=== PATIENT | male | born 1955 ===

== ENCOUNTER 2017-08-25 08:31 | Inpatient (IN) | payer OTHER ==
[2017-08-25 09:30] LABS: BASO % 0.2 % (0.0-2.0); EOS % 0.3 % (0.0-4.0); HEMOGLOBIN 11.2 g/dL (12.0-18.0); LYMPH # 1.1 K/uL (1.0-4.3); LYMPH % 7.2 % (20.0-40.0); MEAN CELL VOLUME 91.1 fL (80.0-94.0); MEAN CORPUSCULAR HEMOGLOBIN 32.4 pg (27.0-31.0); MEAN CORPUSCULAR HGB CONC 35.5 g/dL (33.0-37.0); MEAN PLATELET VOLUME 8.5 fL (7.2-11.7); MONO # 1.9 K/uL (0.0-0.8); MONO % 12.7 % (0.0-10.0); NEUT # 11.9 K/uL (1.8-7.0); NEUT % 79.6 % (50.0-75.0); PLATELET COUNT 266 K/uL (130-400); RBC 3.46 Mil/uL (4.40-5.90); RED CELL DISTRIBUTION WIDTH 12.9 % (11.5-14.5); WHITE BLOOD COUNT 14.9 K/uL (4.8-10.8)
[2017-08-25 09:42] LABS: INR 1.1; PROTHROMBIN TIME 12.2 SECONDS (9.7-12.2)
[2017-08-25 09:49] LABS: ALBUMIN 3.9 g/dL (3.5-5.0); ALT/SGPT 73 U/L (21-72); AST/SGOT 45 U/L (17-59); BLOOD UREA NITROGEN 33 mg/dL (9-20); CALCIUM 9.3 mg/dl (8.6-10.4); GFR AFRICAN-AMERICAN > 60; GFR NON-AFRICAN AMERICAN > 60
[2017-08-25 09:54] LABS: SQUAMOUS EPITHIAL < 1 /hpf (0-5); URINE BILIRUBIN NEGATIVE (NEGATIVE); URINE BLOOD 1+ (NEGATIVE); URINE CLARITY Hazy (Clear); URINE COLOR Amber (YELLOW); URINE GLUCOSE (UA) NORMAL (Normal); URINE LEUKOCYTE ESTERASE 1+ Leu/uL (Negative); URINE PROTEIN 2+ mg/dL (NEGATIVE)
[2017-08-25 10:01] LABS: B-TYPE NATRIURETIC PEPTIDE 67.8 pg/mL (0-900); CK-MB 0.47 ng/mL (0.0-3.38)
--- NOTE | 2017-08-25 10:02 | RAD ---
Chest x-ray single frontal view History: Chest pain. Cough. Comparison: None available. Findings: Mild venous congestion. Bilateral hilar prominence. Mild patchy increased markings at the left lung base. Tortuous aorta. Mild cardiomegaly. Degenerative changes in the spine. Impression: Mild venous congestion. Bilateral hilar prominence. Mild patchy increased markings at the left lung base. Tortuous aorta. Mild cardiomegaly.
[2017-08-25 10:23] LABS: EOSINOPHIL 1 % (0-4); LYMPHOCYTE 2 % (20-40); MONOCYTE 8 % (0-10); NEUTROPHIL 89 % (50-75); TOTAL CELLS COUNTED 100
[2017-08-25 10:24] LABS: PLATELET ESTIMATE NORMAL (NORMAL)
--- NOTE | 2017-08-25 11:29 | CT ---
CT chest History: Cough. Leukocytosis. Comparison: None available. Technique: Multiple contiguous axial images were performed through the chest without the use of intravenous contrast. Subsequently, sagittal and coronal reformatted images were obtained. This CT exam was performed using one or more of the following dose reduction techniques: Automated exposure control, adjustment of the mA and/or kV according to patient size, and/or use of iterative reconstruction technique. Findings: Left lun.4 x 1.8 x 2.4 centimeter focal area of consolidation seen along the anterior aspect of the left upper lobe best seen on series 4, image 44 and series 602, image 106. This is at the level of the left sternoclavicular joint space and anterior chest wall. This is of uncertain clinical etiology and may represent the sequelae of acute infectious and or inflammatory changes. Post treatment interval followup would be helpful to ensure resolution and exclude underlying lesion. Linear atelectatic changes within the lingula. 1 millimeter subpleural nodule at the level of the lingula. Left basilar atelectatic changes. Right lung: Atelectatic changes. No significant axillary adenopathy. Heterogeneous thyroid. 1.1 centimeter prevascular lymph node. Calcification within the aorta. Coronary calcifications. 1.9 centimeter precarinal lymph node. Fatty infiltration in a prominent liver. Small hiatal hernia. Few punctate 1-2 millimeter nonobstructive left renal calculi. Vascular calcifications. Degenerative changes in the visualized osseous structures. Impression: 4.4 x 1.8 x 2.4 centimeter focal area of consolidation seen along the anterior aspect of the left upper lobe of the lung best seen on series 4, image 44 and series 602, image 106. This is at the level of the left sternoclavicular joint space and anterior chest wall. This is of uncertain clinical etiology and may represent the sequelae of acute infectious and or inflammatory changes. Post treatment interval followup would be helpful to ensure resolution and exclude underlying lesion. Additional findings as above.
[2017-08-25] MEDS ORDERED: Azithromycin 500 MG in Sodium Chloride 0.9% 250 ML IVPB STA (12:23)
[2017-08-25] MEDS ORDERED: cefTRIAXone IV 1 gm in Dextros 50 ML IVPB ONE (12:34)
[2017-08-25] MEDS ORDERED: cefTRIAXone IV 1 gm in Dextros 50 ML IVPB STA (12:37)
--- NOTE | 2017-08-25 12:38 | C.PDOC ---
History Of Present Illness 61 y/o male presents to the ED complaining of a decreased appetite and generally not feeling well since Sunday. Also reports a dry cough, and chest pain when coughing. The pain is also radiating to his back. Patient has noticed some swelling to the left side of chest wall, which is painful to touch. Otherwise patient denies any SOB, leg pain/swelling, dizziness, visual changes, numbness, paresthesias, or extremity weakness. Time Seen by Provider: 08/25/17 08:44 Chief Complaint (Nursing): Chest Pain History Per: Patient History/Exam Limitations: no limitations Onset/Duration Of Symptoms: Days Current Symptoms Are (Timing): Still Present Past Medical History Reviewed: Historical Data, Nursing Documentation, Vital Signs Vital Signs: Last Vital Signs Temp 98.9 F 08/25/17 14:10 Pulse 117 H 08/25/17 14:10 Resp 20 08/25/17 14:10 BP 127/75 08/25/17 14:10 Pulse Ox 96 08/25/17 14:30 - Medical History PMH: Diabetes, HTN, Hypercholesterolemia Surgical History: No Surg Hx Family History: States: No Known Family Hx - Social History Hx Alcohol Use: Yes Hx Substance Use: No - Immunization History Hx Tetanus Toxoid Vaccination: (unk) Hx Influenza Vaccination: Yes Hx Pneumococcal Vaccination: (unk) Review Of Systems Except As Marked, All Systems Reviewed And Found Negative. Constitutional: Negative for: Fever, Chills Eyes: Negative for: Vision Change Cardiovascular: Positive for: Chest Pain Respiratory: Positive for: Cough. Negative for: Shortness of Breath, Sputum Gastrointestinal: Positive for: Other (Decreased appetite). Negative for: Nausea, Vomiting Neurological: Negative for: Weakness, Numbness, Incoordination, Change in Speech , Confusion, Headache, Dizziness Physical Exam - Physical Exam Appears: Non-toxic, No Acute Distress Skin: Normal Color, Warm, Dry Head: Atraumatic, Normacephalic Eye(s): bilateral: Normal Inspection, PERRL, EOMI Nose: Normal Oral Mucosa: Moist Neck: Normal ROM, Supple Chest: Symmetrical, Tenderness (to swelling at left anterior chest) Cardiovascular: Rhythm Regular, Edema (soft tissue swelling to left side of chest, with no erythema or skin changes) Respiratory: No Accessory Muscle Use, No Rales, No Rhonchi, No Wheezing Gastrointestinal/Abdominal: Soft, No Tenderness, No Distention Extremity: Bilateral: Atraumatic, No Pedal Edema, Normal Color And Temperature, Normal ROM Pulses: Left Dorsalis Pedis: Normal, Right Dorsalis Pedis: Normal Neurological/Psych: Oriented x3, Normal Speech, Normal Cranial Nerves, Normal Motor, Normal Sensation, Other (No focal deficits) ED Course And Treatment - Laboratory Results Result Diagrams: 08/25/17 09:23 08/25/17 09:23 O2 Sat by Pulse Oximetry: 96 (RA) Pulse Ox Interpretation: Normal - Other Rad CXR X-Ray: Read By Radiologist Interpretation: Accession No. : [id number]. Patient Name / ID : GUILLE REINA / [id number]. Exam Date : 08/25/2017 10:36:12 ( Approved ). Study Comment : Sex / Age : M / 61Y. Creator : Kendall Disla MD. Dictator : Kendall Disla MD. [employer] : Heavy Equipment Technician : Kendall Disla MD. Approver2 : Report Date : 08/25/2017 11:28:25. My Comment : . CT chest. History: Cough. Leukocytosis. Comparison: None available. Technique: Multiple contiguous axial images were performed through the chest without the use of intravenous contrast. Subsequently, sagittal and coronal reformatted images were obtained. This CT exam was performed using one or more of the following dose reduction techniques: Automated exposure control, adjustment of the mA and/or kV according to patient size, and/or use of iterative reconstruction technique. Findings: Left lun.4 x 1.8 x 2.4 centimeter focal area of consolidation seen along the anterior aspect of the left upper lobe best seen on series 4, image 44 and series 602, image 106. This is at the level of the left sternoclavicular joint space and anterior chest wall. This is of uncertain clinical etiology and may represent the sequelae of acute infectious and or inflammatory changes. Post treatment interval followup would be helpful to ensure resolution and exclude underlying lesion. Linear atelectatic changes within the lingula. 1 millimeter subpleural nodule at the level of the lingula. Left basilar atelectatic changes. Right lung: Atelectatic changes. No significant axillary adenopathy. Heterogeneous thyroid. 1.1 centimeter prevascular lymph node. Calcification within the aorta. Coronary calcifications. 1.9 centimeter precarinal lymph node. Fatty infiltration in a prominent liver. Small hiatal hernia. Few punctate 1-2 millimeter nonobstructive left renal calculi. Vascular calcifications. Degenerative changes in the visualized osseous structures. Impression: 4.4 x 1.8 x 2.4 centimeter focal area of consolidation seen along the anterior aspect of the left upper lobe of the lung best seen on series 4, image 44 and series 602, image 106. This is at the level of the left sternoclavicular joint space and anterior chest wall. This is of uncertain clinical etiology and may represent the sequelae of acute infectious and or inflammatory changes. Post treatment interval followup would be helpful to ensure resolution and exclude underlying lesion. Additional findings as above. - CT Scan/US CT Chest Other Rad Studies (CT/US): Read By Radiologist, Radiology Report Reviewed CT/US Interpretation: Accession No. : [id number]. Patient Name / ID : GUILLE REINA / [id number]. Exam Date : 08/25/2017 10:36:12 ( Approved ). Study Comment : Sex / Age : M / 61Y. Creator : Kendall Disla MD. Dictator : Kendall Disla MD. [employer] : Heavy Equipment Technician : Kendall Disla MD. Approver2 : Report Date : 08/25/2017 11:28:25. My Comment : . CT chest. History: Cough. Leukocytosis. Comparison: None available. Technique: Multiple contiguous axial images were performed through the chest without the use of intravenous contrast. Subsequently, sagittal and coronal reformatted images were obtained. This CT exam was performed using one or more of the following dose reduction techniques: Automated exposure control, adjustment of the mA and/or kV according to patient size, and/or use of iterative reconstruction technique. Findings: Left lun.4 x 1.8 x 2.4 centimeter focal area of consolidation seen along the anterior aspect of the left upper lobe best seen on series 4, image 44 and series 602, image 106. This is at the level of the left sternoclavicular joint space and anterior chest wall. This is of uncertain clinical etiology and may represent the sequelae of acute infectious and or inflammatory changes. Post treatment interval followup would be helpful to ensure resolution and exclude underlying lesion. Linear atelectatic changes within the lingula. 1 millimeter subpleural nodule at the level of the lingula. Left basilar atelectatic changes. Right lung: Atelectatic changes. No significant axillary adenopathy. Heterogeneous thyroid. 1.1 centimeter prevascular lymph node. Calcification within the aorta. Coronary calcifications. 1.9 centimeter precarinal lymph node. Fatty infiltration in a prominent liver. Small hiatal hernia. Few punctate 1-2 millimeter nonobstructive left renal calculi. Vascular calcifications. Degenerative changes in the visualized osseous structures. Impression: 4.4 x 1.8 x 2.4 centimeter focal area of consolidation seen along the anterior aspect of the left upper lobe of the lung best seen on series 4, image 44 and series 602, image 106. This is at the level of the left sternoclavicular joint space and anterior chest wall. This is of uncertain clinical etiology and may represent the sequelae of acute infectious and or inflammatory changes. Post treatment interval followup would be helpful to ensure resolution and exclude underlying lesion. Additional findings as above. Progress Note: Labs and CXR obtained and reviewed. Labs are significant for leukocytosis, elevated BUN. Ordered CT Chest w/o contrast. CT demonstrates focalized area of consolidation in the left upper lung, with unknown etiology. Patient started on IV rocephin and zithro. Paged patient's primary doctor, Dr. Hua who accepted patient to his service for observation. - Physician Consult Information Time Consulting Physician Contacted: 12:31 Physician Contacted: Bhavik Javid Outcome Of Conversation: Informed of patient's lab and CT results, requests patient be admitted with Dr. Brandon Cervantes for pulmonology consult. 12: 45pm Paged Dr. Cervantes, left voice mail. 1:35pm 2nd page placed to Dr. Cervantes, left 2nd voice mail. 2:30 pm 3rd page placed to Dr. Cervantes , left 3rd voice mail. Disposition - Disposition Disposition: HOSPITALIZED Disposition Time: 13:27 Condition: FAIR - Clinical Impression Clinical Impression: Pneumonia, Consolidation of right upper lobe - PA / BULL BUCKER / Resident Statement MD/DO has reviewed & agrees with the documentation as recorded. - Scribe Statement The provider has reviewed the documentation as recorded by the Scribe (Yara Siu) All medical record entries made by the Scribe were at my direction and personally dictated by me. I have reviewed the chart and agree that the record accurately reflects my personal performance of the history, physical exam, medical decision making, and the department course for this patient. I have also personally directed, reviewed, and agree with the discharge instructions and disposition. Decision To Admit - Pt Status Changed To: Hospital Disposition Of: Observation - . Bed Request Type: Regular Patient Diagnosis: Pneumonia, Consolidation of right upper lobe
[2017-08-25] MEDS: GlipiZIDE 2.5 mg Tab PO SCH (15:24)
[2017-08-25] MEDS ORDERED: Enoxaparin 40 mg Syringe ONE (15:25)
[2017-08-25] MEDS: Enoxaparin 40 mg Syringe SC SCH (15:30)
[2017-08-25] MEDS: Sodium Chloride 0.9% 500 ML IV SCH ×2 (15:30→20:40)
--- NOTE | 2017-08-25 15:38 | US ---
Abdominal ultrasound History: Hematuria. Comparison: None available. Technique: Real-time sonography was performed through the abdomen. Findings: Liver: 16 centimeters in length. Increased echogenicity of the hepatic parenchymal cortex suggestive for fatty infiltration versus hepatic parenchymal disease. Clinical correlation. Gallbladder: No calculi or sludge. Normal wall thickness of 2.5 millimeters. Negative sonographic Caruso's sign. Common bile duct measures 3.5 millimeters, within normal limits. Pancreas not well visualized. Spleen measures 9.7 centimeters in length, within normal limits. Visualized aorta and IVC are preserved. Atherosclerotic calcification and plaque within the aorta. Right kidney: 12.6 x 6.4 x 5.9 centimeters. No calculi or hydronephrosis. Left Kidney: 11.7 x 6.4 x 6.8 centimeters. No calculi or hydronephrosis. Impression: Increased echogenicity of the hepatic parenchymal cortex suggestive for fatty infiltration versus hepatic parenchymal disease. Clinical correlation. Limited visualization of the pancreas.
[2017-08-25 15:39] LABS: BLOOD UREA NITROGEN 30 mg/dL (9-20); CALCIUM 9.2 mg/dl (8.6-10.4); GFR AFRICAN-AMERICAN > 60; GFR NON-AFRICAN AMERICAN 56
[2017-08-25] MEDS: (Novolin R) Insulin Human Regular 100 units/ml vial SC SCH ×2 (17:00→23:30)
[2017-08-25] MEDS ORDERED: Iodixanol 320 MG/ML 100 ML BOTTLE IV ONE (19:04)
--- NOTE | 2017-08-25 21:03 | CT ---
EXAM: CT Angiography Chest With Intravenous Contrast EXAM DATE/TIME: 08/25/2017 6:50 PM CLINICAL HISTORY: 61 years old, male; Pain; Chest pain; Left-sided chest pain; Additional info: R/O pe, mass vs infiltrate TECHNIQUE: Axial computed tomographic angiography images of the chest with intravenous contrast using pulmonary embolism protocol. All CT scans at this facility use one or more dose reduction techniques, viz.: automated exposure control; ma/kV adjustment per patient size (including targeted exams where dose is matched to indication; i.e. head); or iterative reconstruction technique. MIP reconstructed images were created and reviewed. Coronal and sagittal reformatted images were created and reviewed. CONTRAST: 100 mL of visipaque 320 administered intravenously. COMPARISON: There are no prior studies for comparison. FINDINGS: Artifacts: Motion artifact degrades image quality. The heart, aorta and Pulmonary arteries: The heart is mildly enlarged. There are coronary artery calcifications. There is no aneurysm or dissection. there is perfusion of the 3 arch vessels. There are vascular calcifications. Bolus timing limits evaluation of pulmonary arteries. There are no central pulmonary emboli. There are no large peripheral pulmonary emboli Lungs and pleural spaces: Trachea and main bronchi are patent. There is dependent atelectasis in the right upper lobe. There is no focal consolidation in the right lung. There is atelectasis and scarring in the right lower lobe at the right base. There is no right effusion. There is a pleural-based mass arising from the anterior left chest wall. Mass measures at approximately 2.6 x 5.4 cm. There may be extension into the intercostal space. No rib destruction is identified. Margins are mildly spiculated. There is subsegmental atelectasis in the left lower lobe. There is scarring at the left base. There is minimal airspace disease in the left costophrenic sulcus. There is a small left effusion. There is a granuloma in the left base. Mediastinum: The esophagus is unremarkable. There is a small hiatal hernia. There is a 2.6 x 2.6 x 4.2 cm fatty right paratracheal mediastinal mass/node. There are smaller prominent mediastinal nodes. There is a 1.6 x 1 cm right hilar node. Thyroid: Thyroid is heterogeneous. Bones/joints: There are degenerative changes in the bony structures. Soft tissues: unremarkable Upper abdomen: There are no acute abnormalities in the visualized portion of the abdomen. IMPRESSION: Left anterior chest wall mass with poorly defined margins, appearance is more suggestive of neoplasm than pneumonia; mediastinal adenopathy Additional nonemergent findings as described above.
--- NOTE | 2017-08-25 23:37 | CP.PCM.HP ---
History of Present Illness - History of Present Illness History of Present Illness: 61 y/o male with hx of DM2, HTN presented in ER c/o of pain in the upper anterior lt side of the chest the pain are pleuritic in nature. He c/o general malaise since Sunday. Also he presents with not productive cough, and chest pain when coughing. The pain is also radiating to his back. Patient has noticed some swelling to the left side of chest wall, which is painful to touch. The radiological studies reveled a lung mass with extension to the anterior chest wall . The nature of this lesion is not clear. Patient placed on iv antbx empirically and the diagnostic work up is in progress. Patient placed under observation will follow close his clinical condition. isolation precaution. Present on Admission - Present on Admission Any Indicators Present on Admission: No Review of Systems - Constitutional Constitutional: Fatigue, Malaise, Weakness - EENT Eyes: As Per HPI - Cardiovascular Cardiovascular: Chest Pain - Respiratory Respiratory: Cough - Gastrointestinal Gastrointestinal: As Per HPI - Genitourinary Genitourinary: As Per HPI - Psychiatric Psychiatric: As Per HPI - Endocrine Endocrine: As Per HPI Past Patient History - Past Medical History & Family History Past Medical History?: Yes - Past Social History Smoking Status: Never Smoked - CARDIAC Hx Hypercholesterolemia: Yes Hx Hypertension: Yes - ENDOCRINE/METABOLIC Hx Diabetes Mellitus Type 2: Yes - MUSCULOSKELETAL/RHEUMATOLOGICAL Hx Falls: No - PSYCHIATRIC Hx Substance Use: No - SURGICAL HISTORY Hx Surgeries: No - ANESTHESIA Hx Anesthesia: No Meds Allergies/Adverse Reactions: Allergies Allergy/AdvReac Type Severity Reaction Status Date / Time No Known Allergies Allergy Unverified 08/25/17 08:36 Physical Exam - Constitutional Appears: Non-toxic - Head Exam Head Exam: ATRAUMATIC, NORMAL INSPECTION, NORMOCEPHALIC - Eye Exam Eye Exam: Normal appearance, PERRL Pupil Exam: NORMAL ACCOMODATION - ENT Exam ENT Exam: Mucous Membranes Moist - Neck Exam Neck exam: Positive for: Normal Inspection - Respiratory Exam Respiratory Exam: Clear to Auscultation Bilateral Additional comments: In the upper anterior area of the chest wall there is a large palpable mass, tender with edema no erythema. - Cardiovascular Exam Cardiovascular Exam: REGULAR RHYTHM, +S1, +S2 - GI/Abdominal Exam GI & Abdominal Exam: Normal Bowel Sounds, Soft - Extremities Exam Extremities exam: Positive for: full ROM, normal inspection - Back Exam Back exam: NORMAL INSPECTION - Neurological Exam Neurological exam: Alert, CN II-XII Intact, Normal Gait, Oriented x3, Reflexes Normal - Psychiatric Exam Psychiatric exam: Normal Mood - Skin Additional comments: as above Results - Vital Signs Recent Vital Signs: Last Vital Signs Temp 98.8 F 08/25/17 16:00 Pulse 104 H 08/25/17 16:00 Resp 20 08/25/17 16:00 BP 138/84 08/25/17 16:00 Pulse Ox 95 08/25/17 16:00 - Labs Result Diagrams: 08/25/17 09:23 08/25/17 15:23 Labs: Laboratory Results - last 24 hr 08/25/17 08/25/17 08/25/17 08:42 09:23 09:23 WBC 14.9 H RBC 3.46 L Hgb 11.2 L Hct 31.5 L MCV 91.1 MCH 32.4 H MCHC 35.5 RDW 12.9 Plt Count 266 MPV 8.5 Neut % (Auto) 79.6 H Lymph % (Auto) 7.2 L [place] % (Auto) 12.7 H Eos % (Auto) 0.3 Baso % (Auto) 0.2 Neut # (Auto) 11.9 H Lymph # (Auto) 1.1 [place] # (Auto) 1.9 H Eos # (Auto) 0.0 Baso # (Auto) 0.0 Neutrophils % (Manual) 89 H Lymphocytes % (Manual) 2 L Monocytes % (Manual) 8 Eosinophils % (Manual) 1 Platelet Estimate Normal RBC Morphology Normal ESR PT 12.2 INR 1.1 APTT 31 D-Dimer, Quantitative Sodium Potassium Chloride Carbon Dioxide Anion Gap BUN Creatinine Est GFR ( Amer) Est GFR (Non-Af Amer) POC Glucose (mg/dL) 150 H Random Glucose Calcium Total Bilirubin AST ALT Alkaline Phosphatase Total Creatine Kinase CK-MB (Mass) Troponin I NT-Pro-B Natriuret Pep Total Protein Albumin Globulin Albumin/Globulin Ratio TSH 3rd Generation Urine Color Urine Clarity Urine pH Ur Specific Midway Urine Protein Urine Glucose (UA) Urine Ketones Urine Blood Urine Nitrate Urine Bilirubin Urine Urobilinogen Ur Leukocyte Esterase Urine WBC (Auto) Urine RBC (Auto) Ur Squamous Epith Cells Hyaline Casts 08/25/17 08/25/17 08/25/17 09:23 09:23 15:23 WBC RBC Hgb Hct MCV MCH MCHC RDW Plt Count MPV Neut % (Auto) Lymph % (Auto) [place] % (Auto) Eos % (Auto) Baso % (Auto) Neut # (Auto) Lymph # (Auto) [place] # (Auto) Eos # (Auto) Baso # (Auto) Neutrophils % (Manual) Lymphocytes % (Manual) Monocytes % (Manual) Eosinophils % (Manual) Platelet Estimate RBC Morphology ESR PT INR APTT D-Dimer, Quantitative 1047 H Sodium 140 Potassium 4.0 Chloride 100 Carbon Dioxide 25 Anion Gap 19 BUN 33 H Creatinine 1.2 Est GFR ( Amer) > 60 Est GFR (Non-Af Amer) > 60 POC Glucose (mg/dL) Random Glucose 142 H Calcium 9.3 Total Bilirubin 0.9 AST 45 ALT 73 H Alkaline Phosphatase 113 Total Creatine Kinase 79 CK-MB (Mass) 0.47 Troponin I < 0.0120 NT-Pro-B Natriuret Pep 67.8 Total Protein 7.6 Albumin 3.9 Globulin 3.7 Albumin/Globulin Ratio 1.0 TSH 3rd Generation Urine Color Rita Urine Clarity Hazy Urine pH 5.0 Ur Specific [place]way 1.021 Urine Protein 2+ H Urine Glucose (UA) Normal Urine Ketones Negative Urine Blood 1+ H Urine Nitrate Negative Urine Bilirubin Negative Urine Urobilinogen 4.0 Ur Leukocyte Esterase 1+ H Urine WBC (Auto) 12 H Urine RBC (Auto) 11 H Ur Squamous Epith Cells < 1 Hyaline Casts 6-10 H 08/25/1718 08/25/17 15:23 15:23 16:24 WBC RBC Hgb Hct MCV MCH MCHC RDW Plt Count MPV Neut % (Auto) Lymph % (Auto) [place] % (Auto) Eos % (Auto) Baso % (Auto) Neut # (Auto) Lymph # (Auto) [place] # (Auto) Eos # (Auto) Baso # (Auto) Neutrophils % (Manual) Lymphocytes % (Manual) Monocytes % (Manual) Eosinophils % (Manual) Platelet Estimate RBC Morphology ESR 103 H PT INR APTT D-Dimer, Quantitative Sodium 138 Potassium 4.2 Chloride 101 Carbon Dioxide 25 Anion Gap 16 BUN 30 H Creatinine 1.3 Est GFR ( Amer) > 60 Est GFR (Non-Af Amer) 56 POC Glucose (mg/dL) 126 H Random Glucose 154 H Calcium 9.2 Total Bilirubin AST ALT Alkaline Phosphatase Total Creatine Kinase CK-MB (Mass) Troponin I NT-Pro-B Natriuret Pep Total Protein Albumin Globulin Albumin/Globulin Ratio TSH 3rd Generation 1.47 Urine Color Urine Clarity Urine pH Ur Specific [place]way Urine Protein Urine Glucose (UA) Urine Ketones Urine Blood Urine Nitrate Urine Bilirubin Urine Urobilinogen Ur Leukocyte Esterase Urine WBC (Auto) Urine RBC (Auto) Ur Squamous Epith Cells Hyaline Casts 08/25/17 21:04 WBC RBC Hgb Hct MCV MCH MCHC RDW Plt Count MPV Neut % (Auto) Lymph % (Auto) [place] % (Auto) Eos % (Auto) Baso % (Auto) Neut # (Auto) Lymph # (Auto) [place] # (Auto) Eos # (Auto) Baso # (Auto) Neutrophils % (Manual) Lymphocytes % (Manual) Monocytes % (Manual) Eosinophils % (Manual) Platelet Estimate RBC Morphology ESR PT INR APTT D-Dimer, Quantitative Sodium Potassium Chloride Carbon Dioxide Anion Gap BUN Creatinine Est GFR ( Amer) Est GFR (Non-Af Amer) POC Glucose (mg/dL) 145 H Random Glucose Calcium Total Bilirubin AST ALT Alkaline Phosphatase Total Creatine Kinase CK-MB (Mass) Troponin I NT-Pro-B Natriuret Pep Total Protein Albumin Globulin Albumin/Globulin Ratio TSH 3rd Generation Urine Color Urine Clarity Urine pH Ur Specific [place] Urine Protein Urine Glucose (UA) Urine Ketones Urine Blood Urine Nitrate Urine Bilirubin Urine Urobilinogen Ur Leukocyte Esterase Urine WBC (Auto) Urine RBC (Auto) Ur Squamous Epith Cells Hyaline Casts Assessment & Plan (1) Consolidation of right upper lobe Status: Acute (2) Pneumonia Status: Acute (3) Lung cancer Status: Suspected (4) Chondrosarcoma Status: Suspected (5) Diabetes Status: Acute (6) Hypertensive cardiovascular disease Status: Chronic (7) Hypertensive cardiovascular disease Status: Chronic (8) Microhematuria Status: Acute (9) Proteinuria Status: Acute (10) UTI (urinary tract infection) Status: Acute - Assessment and Plan (Free Text) Plan: As per orders. On respiratory isolation.
[2017-08-26] MEDS: Sodium Chloride 0.9% 500 ML IV SCH ×4 (01:35→21:00)
[2017-08-26 08:11] LABS: BASO % 0.2 % (0.0-2.0); EOS % 0.3 % (0.0-4.0); HEMOGLOBIN 10.1 g/dL (12.0-18.0); LYMPH # 1.1 K/uL (1.0-4.3); LYMPH % 8.2 % (20.0-40.0); MEAN CELL VOLUME 91.2 fL (80.0-94.0); MEAN CORPUSCULAR HEMOGLOBIN 32.2 pg (27.0-31.0); MEAN CORPUSCULAR HGB CONC 35.3 g/dL (33.0-37.0); MEAN PLATELET VOLUME 8.8 fL (7.2-11.7); MONO # 1.7 K/uL (0.0-0.8); MONO % 12.4 % (0.0-10.0); NEUT # 11.1 K/uL (1.8-7.0); NEUT % 78.9 % (50.0-75.0); PLATELET COUNT 271 K/uL (130-400); RBC 3.12 Mil/uL (4.40-5.90); RED CELL DISTRIBUTION WIDTH 13.1 % (11.5-14.5)
[2017-08-26 08:22] LABS: ALBUMIN 3.5 g/dL (3.5-5.0); ALT/SGPT 62 U/L (21-72); AST/SGOT 37 U/L (17-59); BLOOD UREA NITROGEN 28 mg/dL (9-20); CALCIUM 9.2 mg/dl (8.6-10.4); GFR AFRICAN-AMERICAN > 60; GFR NON-AFRICAN AMERICAN > 60
[2017-08-26] MEDS: (Novolin R) Insulin Human Regular 100 units/ml vial SC SCH ×4 (08:38→21:22)
[2017-08-26] MEDS: GlipiZIDE 2.5 mg Tab PO SCH (08:38)
[2017-08-26 08:50] LABS: EOSINOPHIL 1 % (0-4); LYMPHOCYTE 2 % (20-40); MONOCYTE 1 % (0-10); NEUTROPHIL 96 % (50-75); PLATELET ESTIMATE NORMAL (NORMAL); TOTAL CELLS COUNTED 100
[2017-08-26] MEDS: Enoxaparin 40 mg Syringe SC SCH (09:40)
[2017-08-26] MEDS: Azithromycin 500 MG in Sodium Chloride 0.9% 250 ML IVPB SCH (09:41)
--- NOTE | 2017-08-26 14:25 | CP.PCM.PN ---
Subjective - Date & Time of Evaluation Date of Evaluation: 08/26/17 Time of Evaluation: 14:29 - Subjective Subjective: Patient general condition with no significant changes, still c/o tenderness in the anterior area of the chest, cough, general malaise. The lesion presented can be related to TB. Patient placed to isolation and regularly admitted as IP for further evaluation. ID consult appreciated. Will follow AFB culture. Objective - Vital Signs/Intake and Output Vital Signs (last 24 hours): Temp Pulse Resp BP Pulse Ox 98.5 F 88 20 132/80 96 08/26/17 07:07 08/26/17 07:07 08/26/17 07:07 08/26/17 09:40 08/26/17 07:07 Intake and Output: 08/26/17 08/26/17 11:59 23:59 Intake Total 85 Balance 85 - Medications Medications: Current Medications Enalapril Maleate (Vasotec) 20 mg PO DAILY [facility] Last Admin: 08/26/17 09:40 Dose: 20 mg Enoxaparin Sodium (Lovenox) 40 mg SC DAILY [facility] Last Admin: 08/26/17 09:40 Dose: 40 mg Glipizide (Glucotrol) 2.5 mg PO ACB [facility] Last Admin: 08/26/17 08:38 Dose: 2.5 mg Azithromycin 500 mg/ Sodium (Chloride) 250 mls @ 250 mls/hr IVPB DAILY [facility] PRN Reason: Protocol Last Admin: 08/26/17 09:41 Dose: 250 mls/hr Sodium Chloride (Sodium Chloride 0.9%) 500 mls @ 85 mls/hr IV .Q5H53M [facility] Last Admin: 08/26/17 08:39 Dose: 85 mls/hr Imipenem/Cilastatin Sodium 500 (mg/ Sodium Chloride) 100 mls @ 100 mls/hr IVPB Q8H [facility] PRN Reason: Protocol Last Admin: 08/26/17 12:15 Dose: 100 mls/hr Insulin Human Regular (Novolin R) 0 unit SC ACHS [facility] PRN Reason: Protocol Last Admin: 08/26/17 12:14 Dose: 1 unit Rosuvastatin Calcium (Crestor) 10 mg PO HS [facility] - Labs Labs: 08/26/17 07:57 08/26/17 07:57 PT 12.2 SECONDS (9.7-12.2) 08/25/17 09:23 INR 1.1 08/25/17 09:23 APTT 31 SECONDS (21-34) 08/25/17 09:23 - Constitutional Appears: Non-toxic - Head Exam Head Exam: ATRAUMATIC, NORMAL INSPECTION, NORMOCEPHALIC - Eye Exam Eye Exam: Normal appearance - ENT Exam ENT Exam: Mucous Membranes Moist - Neck Exam Neck Exam: Full ROM - Respiratory Exam Respiratory Exam: Clear to Ausculation Bilateral Additional comments: no changes in the examination with tenderness in the anterior area of the chest. - GI/Abdominal Exam GI & Abdominal Exam: Soft, Normal Bowel Sounds - Neurological Exam Neurological Exam: Alert, Awake, CN II-XII Intact, Oriented x3 - Psychiatric Exam Psychiatric exam: Normal Mood - Skin Skin Exam: Dry Assessment and Plan (1) Consolidation of right upper lobe Status: Acute (2) Pneumonia Status: Acute (3) Lung cancer Status: Suspected (4) Chondrosarcoma Status: Suspected (5) Diabetes Status: Acute (6) Hypertensive cardiovascular disease Status: Chronic (7) Hypertensive cardiovascular disease Status: Chronic (8) Microhematuria Status: Acute (9) Proteinuria Status: Acute (10) UTI (urinary tract infection) Status: Acute (11) 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
[2017-08-27] MEDS: Sodium Chloride 0.9% 500 ML IV SCH ×5 (01:44→19:09)
[2017-08-27] MEDS: GlipiZIDE 2.5 mg Tab PO SCH (08:21)
[2017-08-27] MEDS: (Novolin R) Insulin Human Regular 100 units/ml vial SC SCH ×4 (08:21→21:31)
[2017-08-27] MEDS: Enoxaparin 40 mg Syringe SC SCH (10:27)
[2017-08-27] MEDS: Azithromycin 500 MG in Sodium Chloride 0.9% 250 ML IVPB SCH (10:27)
--- NOTE | 2017-08-27 10:48 | PCM.IRP ---
History of Present Illness - History of Present Illness History of Present Illness: IR requested for biopsy of left upper lung lesion. CT reviewed. I agree that findings might be related to pneumonia. Recommend repeat CT scan in one month following antibiotics treatment. Objective - Vital Signs/Intake and Output Vital Signs (last 24 hours): Vital Signs - 24 hr 08/26/17 08/26/17 08/26/17 14:31 15:44 23:23 Temperature 99.2 F 98.4 F Pulse Rate 97 H 87 Respiratory 22 20 20 Rate Blood Pressure 146/72 111/62 O2 Sat by Pulse 97 95 Oximetry 08/27/17 08/27/17 07:00 10:27 Temperature 99.1 F Pulse Rate 87 Respiratory 20 Rate Blood Pressure 140/77 145/82 O2 Sat by Pulse 96 Oximetry Intake and Output (last 12 hours): Intake & Output 08/26/17 08/27/17 08/27/17 18:59 06:59 18:59 Intake Total 1000 1180 Balance 1000 1180 Intake: Intake, IV Amount 700 680 Right Antecubital 700 680 Oral 300 500 Other: # Voids Urine, Voided 2 1 # Bowel Movements 0 - Medications Medications: Current Medications Enalapril Maleate (Vasotec) 20 mg PO DAILY [facility] Last Admin: 08/27/17 10:27 Dose: 20 mg Enoxaparin Sodium (Lovenox) 40 mg SC DAILY [facility] Last Admin: 08/27/17 10:27 Dose: 40 mg Glipizide (Glucotrol) 5 mg PO ACB [facility] Azithromycin 500 mg/ Sodium (Chloride) 250 mls @ 250 mls/hr IVPB DAILY [facility] PRN Reason: Protocol Last Admin: 08/27/17 10:27 Dose: 250 mls/hr Sodium Chloride (Sodium Chloride 0.9%) 500 mls @ 85 mls/hr IV .Q5H53M [facility] Last Admin: 08/27/17 08:22 Dose: Not Given Imipenem/Cilastatin Sodium 500 (mg/ Sodium Chloride) 100 mls @ 100 mls/hr IVPB Q8H [facility] PRN Reason: Protocol Last Admin: 08/27/17 04:44 Dose: 100 mls/hr Insulin Human Regular (Novolin R) 0 unit SC ACHS [facility] PRN Reason: Protocol Last Admin: 08/27/17 08:21 Dose: 1 unit Rosuvastatin Calcium (Crestor) 10 mg PO HS [facility] Last Admin: 08/26/17 21:34 Dose: 10 mg - Labs Labs (last 24 hours): Laboratory Results - last 24 hr 08/26/17 08/26/17 08/26/17 11:42 16:37 21:11 POC Glucose (mg/dL) 173 H 141 H 269 H 08/27/17 06:36 POC Glucose (mg/dL) 174 H
[2017-08-27 11:52] LABS: BASO # 0.1 K/uL (0.0-0.2); BASO % 0.5 % (0.0-2.0); EOS # 0.1 K/uL (0.0-0.7); EOS % 0.7 % (0.0-4.0); HEMOGLOBIN 10.4 g/dL (12.0-18.0); LYMPH # 1.3 K/uL (1.0-4.3); LYMPH % 11.1 % (20.0-40.0); MEAN CELL VOLUME 92.8 fL (80.0-94.0); MEAN CORPUSCULAR HEMOGLOBIN 32.3 pg (27.0-31.0); MEAN CORPUSCULAR HGB CONC 34.8 g/dL (33.0-37.0); MEAN PLATELET VOLUME 8.7 fL (7.2-11.7); MONO # 1.3 K/uL (0.0-0.8); MONO % 10.7 % (0.0-10.0); NEUT # 9.1 K/uL (1.8-7.0); RBC 3.23 Mil/uL (4.40-5.90); RED CELL DISTRIBUTION WIDTH 13.2 % (11.5-14.5); WHITE BLOOD COUNT 11.9 K/uL (4.8-10.8)
[2017-08-27 12:09] LABS: BLOOD UREA NITROGEN 21 mg/dL (9-20); CALCIUM 9.1 mg/dl (8.6-10.4); GFR AFRICAN-AMERICAN > 60; GFR NON-AFRICAN AMERICAN > 60
[2017-08-27 13:25] LABS: URINE BACTERIA RARE (<OCC); URINE BILIRUBIN NEGATIVE (NEGATIVE); URINE BLOOD NEGATIVE (NEGATIVE); URINE CLARITY Clear (Clear); URINE COLOR Yellow (YELLOW); URINE GLUCOSE (UA) 3+ mg/dL (Normal); URINE LEUKOCYTE ESTERASE 2+ Leu/uL (Negative); URINE PROTEIN NEGATIVE (NEGATIVE)
--- NOTE | 2017-08-27 13:55 | CP.PCM.PN ---
Subjective - Date & Time of Evaluation Date of Evaluation: 08/27/17 Time of Evaluation: 13:56 - Subjective Subjective: Patient general condition improving, less cough, less tenderness. As per IR hold on bx will follow the patient clinically. Wait for culture sputum. Continue present rx. Objective - Vital Signs/Intake and Output Vital Signs (last 24 hours): Temp Pulse Resp BP Pulse Ox 99.1 F 87 20 145/82 96 08/27/17 07:00 08/27/17 07:00 08/27/17 07:00 08/27/17 10:27 08/27/17 07:00 - Medications Medications: Current Medications Enalapril Maleate (Vasotec) 20 mg PO DAILY [facility] Last Admin: 08/27/17 10:27 Dose: 20 mg Enoxaparin Sodium (Lovenox) 40 mg SC DAILY [facility] Last Admin: 08/27/17 10:27 Dose: 40 mg Glipizide (Glucotrol) 10 mg PO ACB [facility] Azithromycin 500 mg/ Sodium (Chloride) 250 mls @ 250 mls/hr IVPB DAILY [facility] PRN Reason: Protocol Last Admin: 08/27/17 10:27 Dose: 250 mls/hr Sodium Chloride (Sodium Chloride 0.9%) 500 mls @ 85 mls/hr IV .Q5H53M [facility] Last Admin: 08/27/17 12:21 Dose: 85 mls/hr Imipenem/Cilastatin Sodium 500 (mg/ Sodium Chloride) 100 mls @ 100 mls/hr IVPB Q8H [facility] PRN Reason: Protocol Last Admin: 08/27/17 11:55 Dose: 100 mls/hr Insulin Human Regular (Novolin R) 0 unit SC ACHS [facility] PRN Reason: Protocol Last Admin: 08/27/17 12:20 Dose: 3 unit Rosuvastatin Calcium (Crestor) 10 mg PO HS [facility] Last Admin: 08/26/17 21:34 Dose: 10 mg - Labs Labs: 08/27/17 11:37 08/27/17 11:37 PT 12.2 SECONDS (9.7-12.2) 08/25/17 09:23 INR 1.1 08/25/17 09:23 APTT 31 SECONDS (21-34) 08/25/17 09:23 - Constitutional Appears: Non-toxic - Head Exam Head Exam: ATRAUMATIC, NORMAL INSPECTION, NORMOCEPHALIC - Eye Exam Eye Exam: Normal appearance, PERRL Pupil Exam: NORMAL ACCOMODATION - ENT Exam ENT Exam: Mucous Membranes Moist - Neck Exam Neck Exam: Full ROM, Normal Inspection - Respiratory Exam Respiratory Exam: Clear to Ausculation Bilateral Additional comments: Less tenderness in the anterior chest wall. - Cardiovascular Exam Cardiovascular Exam: REGULAR RHYTHM, +S1, +S2 - GI/Abdominal Exam GI & Abdominal Exam: Soft, Normal Bowel Sounds - Extremities Exam Extremities Exam: Full ROM - Back Exam Back Exam: NORMAL INSPECTION - Neurological Exam Neurological Exam: Alert, Awake, CN II-XII Intact, Oriented x3 - Psychiatric Exam Psychiatric exam: Normal Affect - Skin Skin Exam: Normal Color Assessment and Plan (1) Consolidation of right upper lobe Status: Acute (2) Pneumonia Status: Acute (3) Lung cancer Status: Suspected (4) Chondrosarcoma Status: Suspected (5) Diabetes Status: Acute (6) Hypertensive cardiovascular disease Status: Chronic (7) Hypertensive cardiovascular disease Status: Chronic (8) Microhematuria Status: Acute (9) Proteinuria Status: Acute (10) UTI (urinary tract infection) Status: Acute (11) 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 - Assessment and Plan (Free Text) Plan: As above.
--- NOTE | 2017-08-27 18:16 | CP.PCM.CON ---
History of Present Illness - History of Present Illness History of Present Illness: INFECTIOUS DISEASE CONSULTATION COBY SANTIZO MD, FACP 5T 657-ISOLATION 08/27/2017 CHART REVIEWED PT EXAMINED CASE DISCUSSED 61 y/o male presented in ER/ED: c/o of pain in the LEFT, upper anterior CHEST - the pains are pleuritic in nature. He c/o general malaise since Sunday/Sunday. Also without any productive cough whatsoever, and chest pain when only with coughing. The pain is also radiating to his back. This Patient has noticed some swelling to the left side of chest wall, which is painful to touch. The radiological studies reveled a lung mass with extension to the anterior chest wall, ~2.5x5.5 cm . The nature of this lesion is not clear. Patient placed on iv antbx empirically and the diagnostic work up is in progress. Patient placed under isolation precaution. AN INFECTIOUS DISEASE CONSULTATION WAS REQUESTED BECAUSE OF MULTIPLE PULMONARY/ INFECTIOUS ETIOLOGIES-FOR DX AND RX. PMHX: DM-OVER 20 YRS HTN DYSLIPIDEMIA FAMILY HX NOTED DENIES ANY SIGNIFICANT TOBACCO/ETOH USE DENIES ANY MEDICATION ALLERGIES ROS: NO TEMPS, COUGH, N,V,D,C, NO WEIGHT LOSS-CLOSE FIT +ACUTE CHEST WALL DISCOMFORT AND NOT FEELING WELL. VS: AFEBRILE AND STABLE HUNGREY SUPPLE DECREASED BREATH SOUNDS LEFT LUNG COR NOTED ABD SOFT EXT NO EDEMA, CYANOSIS CT RESULTS READ X 2! IMPRESSION: LEFT SIDE CHEST WALL MASS WITH/WITHOUT 2MD PNEUMONIA DOUBT GRANULOMATOSIS LIKE INFECTION SUGGEST SKINNY NEEDLE BIOPSY AFTER TRIAL OF AB VS OPEN LUNG BIOPSY VS BRONCHOSPY -IF POSSIBLE. IV PRIMAXIN ORDERED CHECK: HIV, RPR, HISTOPLASMOSIS SEROLOGY, PSA, CEA, AND IF POSSIBLE SPUTUM'S FOR AFB COBY SANTIZO MD, FACP Review of Systems - Constitutional Constitutional: Increased Appetite, Malaise. absent: Anorexia, Chills, Excessive Sweating, Fever, Headache, Night Sweats, Sleep Apnea, Weight Loss - EENT Eyes: absent: As Per HPI, Blind Spots, Blurred Vision, Change in Vision, Decreased Night Vision, Diplopia, Discharge, Dry Eye, Exophthalmos, Floaters, Irritation, Itchy Eyes, Loss of Peripheral Vision, Pain, Photophobia, Requires Corrective Lenses, Sees Flashes, Spots in Vision, Tunnel Vision, Other Visual Disturbances, Loss of Vision, Other Ears: absent: As Per HPI, Decreased Hearing, Ear Discharge, Ear Pain, Tinnitus, Abnormal Hearing, Disequilibrium, Dizziness, Other Nose/Mouth/Throat: absent: Epistaxis, Nasal Discharge, Sinus Pressure, Change in Voice, Dry Mouth, Mouth Lesions, Tongue Swelling - Cardiovascular Cardiovascular: absent: Chest Pain, Claudication, Diaphoresis, Irregular Heart Rhythm, Leg Edema, Palpitations, Slow Heart Rate - Respiratory Respiratory: Pain on Inspiration. absent: Cough, Hemoptysis - Gastrointestinal Gastrointestinal: absent: Coffee Ground Emesis, Diarrhea, Dyspepsia, Hematochezia, Vomiting - Genitourinary Genitourinary: absent: Change in Urinary Stream, Bladder Distension - Musculoskeletal Musculoskeletal: absent: Atrophy, Tingling - Integumentary Integumentary: absent: As Per HPI, Acne, Alopecia, Bleeding Lesions, Change in Hair, Change in Nails, Change in Pigmentation, Changing Lesions, Dry Skin, Erythema, Furuncle, Hirsutism, Lesions, New Lesions, Non-Healing Lesions, Photosensitivity, Pruritus, Rash, Skin Pain, Skin Ulcer, Sores, Striae, Swelling , Unusual Bruising, Wounds, Jaundice, Other Past Patient History - Tetanus Immunizations Tetanus Immunization: Unknown - Past Medical History & Family History Past Medical History?: Yes - Past Social History Smoking Status: Former Smoker Chewing Tobacco Use: No Occupation: [employer] Alcohol: Occasional Home Situation {Lives}: With Family - CARDIAC Hx Cardiac Disorders: Yes Hx Hypercholesterolemia: Yes Hx Hypertension: Yes - PULMONARY Hx Respiratory Disorders: No - NEUROLOGICAL Hx Neurological Disorder: No - HEENT Hx HEENT Problems: No - RENAL Hx Chronic Kidney Disease: No - ENDOCRINE/METABOLIC Hx Endocrine Disorders: Yes Hx Diabetes Mellitus Type 2: Yes - INTEGUMENTARY Hx Dermatological Problems: No - MUSCULOSKELETAL/RHEUMATOLOGICAL Hx Musculoskeletal Disorders: No Hx Falls: No - GASTROINTESTINAL Hx Gastrointestinal Disorders: No - GENITOURINARY/GYNECOLOGICAL Hx Genitourinary Disorders: No - PSYCHIATRIC Hx Substance Use: No - SURGICAL HISTORY Hx Surgeries: No - ANESTHESIA Hx Anesthesia: No Meds Allergies/Adverse Reactions: Allergies Allergy/AdvReac Type Severity Reaction Status Date / Time No Known Allergies Allergy Unverified 08/25/17 08:36 - Medications Medications: Current Medications Enalapril Maleate (Vasotec) 20 mg PO DAILY [facility] Last Admin: 08/27/17 10:27 Dose: 20 mg Enoxaparin Sodium (Lovenox) 40 mg SC DAILY [facility] Last Admin: 08/27/17 10:27 Dose: 40 mg Glipizide (Glucotrol) 10 mg PO ACB [facility] Azithromycin 500 mg/ Sodium (Chloride) 250 mls @ 250 mls/hr IVPB DAILY [facility] PRN Reason: Protocol Last Admin: 08/27/17 10:27 Dose: 250 mls/hr Sodium Chloride (Sodium Chloride 0.9%) 500 mls @ 85 mls/hr IV .Q5H53M [facility] Last Admin: 08/27/17 14:13 Dose: Not Given Imipenem/Cilastatin Sodium 500 (mg/ Sodium Chloride) 100 mls @ 100 mls/hr IVPB Q8H [facility] PRN Reason: Protocol Last Admin: 08/27/17 11:55 Dose: 100 mls/hr Insulin Human Regular (Novolin R) 0 unit SC ACHS [facility] PRN Reason: Protocol Last Admin: 08/27/17 17:41 Dose: 2 unit Rosuvastatin Calcium (Crestor) 10 mg PO HS [facility] Last Admin: 08/26/17 21:34 Dose: 10 mg Physical Exam - Constitutional Appears: Non-toxic - Head Exam Head Exam: ATRAUMATIC, NORMAL INSPECTION - Eye Exam Eye Exam: Normal appearance - ENT Exam ENT Exam: Mucous Membranes Moist - Respiratory Exam Respiratory Exam: Chest Wall Tenderness, NORMAL BREATHING PATTERN - Cardiovascular Exam Cardiovascular Exam: REGULAR RHYTHM - GI/Abdominal Exam GI & Abdominal Exam: Normal Bowel Sounds, Soft. absent: Tenderness - Rectal Exam Rectal Exam: Deferred Results - Vital Signs Recent Vital Signs: Last Vital Signs Temp 98.5 F 08/27/17 15:10 Pulse 89 08/27/17 15:10 Resp 20 08/27/17 15:10 BP 156/83 H 08/27/17 15:10 Pulse Ox 96 08/27/17 15:10 - Labs Result Diagrams: 08/27/17 11:37 08/27/17 11:37 Labs: Laboratory Results - last 24 hr 08/26/17 08/27/17 08/27/17 21:11 06:36 11:19 WBC RBC Hgb Hct MCV MCH MCHC RDW Plt Count MPV Neut % (Auto) Lymph % (Auto) [place] % (Auto) Eos % (Auto) Baso % (Auto) Neut # (Auto) Lymph # (Auto) [place] # (Auto) Eos # (Auto) Baso # (Auto) Sodium Potassium Chloride Carbon Dioxide Anion Gap BUN Creatinine Est GFR ( Amer) Est GFR (Non-Af Amer) POC Glucose (mg/dL) 269 H 174 H 269 H Random Glucose Calcium Urine Color Urine Clarity Urine pH Ur Specific Slater Urine Protein Urine Glucose (UA) Urine Ketones Urine Blood Urine Nitrate Urine Bilirubin Urine Urobilinogen Ur Leukocyte Esterase Urine WBC (Auto) Urine RBC (Auto) Urine Bacteria 08/27/17 08/27/17 08/27/17 11:37 11:37 13:16 WBC 11.9 H RBC 3.23 L Hgb 10.4 L Hct 29.9 L MCV 92.8 MCH 32.3 H MCHC 34.8 RDW 13.2 Plt Count 292 MPV 8.7 Neut % (Auto) 77.0 H Lymph % (Auto) 11.1 L [place] % (Auto) 10.7 H Eos % (Auto) 0.7 Baso % (Auto) 0.5 Neut # (Auto) 9.1 H Lymph # (Auto) 1.3 [place] # (Auto) 1.3 H Eos # (Auto) 0.1 Baso # (Auto) 0.1 Sodium 137 Potassium 4.3 Chloride 103 Carbon Dioxide 23 Anion Gap 15 BUN 21 H Creatinine 1.1 Est GFR ( Amer) > 60 Est GFR (Non-Af Amer) > 60 POC Glucose (mg/dL) Random Glucose 256 H Calcium 9.1 Urine Color Yellow Urine Clarity Clear Urine pH 6.0 Ur Specific Slater 1.008 Urine Protein Negative Urine Glucose (UA) 3+ H Urine Ketones Negative Urine Blood Negative Urine Nitrate Negative Urine Bilirubin Negative Urine Urobilinogen 2.0 Ur Leukocyte Esterase 2+ H Urine WBC (Auto) 18 H Urine RBC (Auto) 1 Urine Bacteria Rare 08/27/17 16:28 WBC RBC Hgb Hct MCV MCH MCHC RDW Plt Count MPV Neut % (Auto) Lymph % (Auto) [place] % (Auto) Eos % (Auto) Baso % (Auto) Neut # (Auto) Lymph # (Auto) [place] # (Auto) Eos # (Auto) Baso # (Auto) Sodium Potassium Chloride Carbon Dioxide Anion Gap BUN Creatinine Est GFR ( Amer) Est GFR (Non-Af Amer) POC Glucose (mg/dL) 208 H Random Glucose Calcium Urine Color Urine Clarity Urine pH Ur Specific Slater Urine Protein Urine Glucose (UA) Urine Ketones Urine Blood Urine Nitrate Urine Bilirubin Urine Urobilinogen Ur Leukocyte Esterase Urine WBC (Auto) Urine RBC (Auto) Urine Bacteria Assessment & Plan (1) Mass of lung parenchyma Status: Acute Priority: High (2) Mass of left lung Status: Acute Priority: High (3) Diabetes Status: Chronic Priority: Medium
[2017-08-28 00:47] LABS: TB ANTIGEN MINUS NIL <0.00 IU/mL
[2017-08-28] MEDS: Sodium Chloride 0.9% 500 ML IV SCH ×4 (01:44→15:19)
[2017-08-28] MEDS: (Novolin R) Insulin Human Regular 100 units/ml vial SC SCH ×4 (08:30→21:18)
[2017-08-28] MEDS: Azithromycin 500 MG in Sodium Chloride 0.9% 250 ML IVPB SCH (09:35)
[2017-08-28] MEDS: Enoxaparin 40 mg Syringe SC SCH (09:35)
[2017-08-28 11:07] LABS: BLOOD UREA NITROGEN 20 mg/dL (9-20); CALCIUM 9.3 mg/dl (8.6-10.4); GFR AFRICAN-AMERICAN > 60; GFR NON-AFRICAN AMERICAN > 60
--- NOTE | 2017-08-28 18:32 | CP.PCM.PN ---
Subjective - Date & Time of Evaluation Date of Evaluation: 08/28/17 Time of Evaluation: 18:32 - Subjective Subjective: Improving, less tenderness in chest, sputum culture pending. Objective - Vital Signs/Intake and Output Vital Signs (last 24 hours): Temp Pulse Resp BP Pulse Ox 98.7 F 103 H 20 136/77 94 L 08/28/17 15:42 08/28/17 15:42 08/28/17 15:42 08/28/17 15:42 08/28/17 15:42 Intake and Output: 08/28/17 08/28/17 11:59 23:59 Intake Total 1050 Balance 1050 - Medications Medications: Current Medications Enalapril Maleate (Vasotec) 20 mg PO DAILY [facility] Last Admin: 08/28/17 09:34 Dose: 20 mg Enoxaparin Sodium (Lovenox) 40 mg SC DAILY [facility] Last Admin: 08/28/17 09:35 Dose: 40 mg Glipizide (Glucotrol) 10 mg PO ACB [facility] Last Admin: 08/28/17 08:30 Dose: 10 mg Azithromycin 500 mg/ Sodium (Chloride) 250 mls @ 250 mls/hr IVPB DAILY [facility] PRN Reason: Protocol Last Admin: 08/28/17 09:35 Dose: 250 mls/hr Imipenem/Cilastatin Sodium 500 (mg/ Sodium Chloride) 100 mls @ 100 mls/hr IVPB Q8H [facility] PRN Reason: Protocol Last Admin: 08/28/17 12:37 Dose: 100 mls/hr Insulin Human Regular (Novolin R) 0 unit SC ACHS [facility] PRN Reason: Protocol Last Admin: 08/28/17 17:19 Dose: Not Given Metformin HCl (Glucophage) 1,000 mg PO BIDCC [facility] Last Admin: 08/28/17 17:19 Dose: Not Given Rosuvastatin Calcium (Crestor) 10 mg PO HS [facility] Last Admin: 08/27/17 21:36 Dose: 10 mg Sitagliptin Phosphate (Januvia) 100 mg PO DAILY [facility] Last Admin: 08/28/17 13:14 Dose: 100 mg - Labs Labs: 08/27/17 11:37 08/28/17 10:51 PT 12.2 SECONDS (9.7-12.2) 08/25/17 09:23 INR 1.1 08/25/17 09:23 APTT 31 SECONDS (21-34) 08/25/17 09:23 - Constitutional Appears: Non-toxic - Head Exam Head Exam: ATRAUMATIC, NORMAL INSPECTION, NORMOCEPHALIC - Eye Exam Eye Exam: Normal appearance - ENT Exam ENT Exam: Mucous Membranes Moist - Neck Exam Neck Exam: Full ROM - Respiratory Exam Respiratory Exam: Clear to Ausculation Bilateral - Cardiovascular Exam Cardiovascular Exam: REGULAR RHYTHM, +S1, +S2 - GI/Abdominal Exam GI & Abdominal Exam: Soft, Normal Bowel Sounds - Extremities Exam Extremities Exam: Full ROM, Normal Inspection - Neurological Exam Neurological Exam: Alert, Awake, CN II-XII Intact, Oriented x3 - Psychiatric Exam Psychiatric exam: Normal Affect - Skin Skin Exam: Normal Color Assessment and Plan (1) Consolidation of right upper lobe Status: Acute (2) Pneumonia Status: Acute (3) Lung cancer Status: Suspected (4) Chondrosarcoma Status: Suspected (5) Diabetes Status: Chronic (6) Hypertensive cardiovascular disease Status: Chronic (7) Hypertensive cardiovascular disease Status: Chronic (8) Microhematuria Status: Acute (9) Proteinuria Status: Acute (10) UTI (urinary tract infection) Status: Acute (11) 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 Will follow culture
--- NOTE | 2017-08-28 21:12 | CP.PCM.PN ---
Subjective - Date & Time of Evaluation Date of Evaluation: 08/28/17 Time of Evaluation: 20:35 - Subjective Subjective: INFECTIOUS DISEASE PROGRESS NOTES COBY SANTIZO MD, FACP 5T 567 08/28/2017 CHART REVIEWED PT EXAMINED CASE DISCUSSED LABS NOT DIAGNOSTIC YET WILL NEED PULMONARY EVALUATION FOR POSSIBLE BRONCHOSCOPY VS SKINNY NEEDLE BIOPSY , IF SEROLOGIES AND C/S ARE NEGATIVE. PRESENTLY NEG HIV, CEA, PSA Objective - Vital Signs/Intake and Output Vital Signs (last 24 hours): Temp Pulse Resp BP Pulse Ox 98.7 F 103 H 20 136/77 94 L 08/28/17 15:42 08/28/17 15:42 08/28/17 15:42 08/28/17 15:42 08/28/17 15:42 Intake and Output: 08/28/17 08/29/17 18:59 06:59 Intake Total 1050 Balance 1050 - Medications Medications: Current Medications Enalapril Maleate (Vasotec) 20 mg PO DAILY [facility] Last Admin: 08/28/17 09:34 Dose: 20 mg Enoxaparin Sodium (Lovenox) 40 mg SC DAILY [facility] Last Admin: 08/28/17 09:35 Dose: 40 mg Glipizide (Glucotrol) 10 mg PO ACB [facility] Last Admin: 08/28/17 08:30 Dose: 10 mg Azithromycin 500 mg/ Sodium (Chloride) 250 mls @ 250 mls/hr IVPB DAILY [facility] PRN Reason: Protocol Last Admin: 08/28/17 09:35 Dose: 250 mls/hr Imipenem/Cilastatin Sodium 500 (mg/ Sodium Chloride) 100 mls @ 100 mls/hr IVPB Q8H [facility] PRN Reason: Protocol Last Admin: 08/28/17 19:45 Dose: 100 mls/hr Insulin Human Regular (Novolin R) 0 unit SC ACHS [facility] PRN Reason: Protocol Last Admin: 08/28/17 17:19 Dose: Not Given Metformin HCl (Glucophage) 1,000 mg PO BIDCC [facility] Last Admin: 08/28/17 17:19 Dose: Not Given Rosuvastatin Calcium (Crestor) 10 mg PO HS [facility] Last Admin: 08/27/17 21:36 Dose: 10 mg Sitagliptin Phosphate (Januvia) 100 mg PO DAILY [facility] Last Admin: 08/28/17 13:14 Dose: 100 mg - Labs Labs: 08/27/17 11:37 08/28/17 10:51 PT 12.2 SECONDS (9.7-12.2) 08/25/17 09:23 INR 1.1 08/25/17 09:23 APTT 31 SECONDS (21-34) 08/25/17 09:23 Assessment and Plan (1) Mass of lung parenchyma Status: Acute (2) Mass of left lung Status: Acute (3) Diabetes Status: Chronic
[2017-08-29] MEDS: (Novolin R) Insulin Human Regular 100 units/ml vial SC SCH ×4 (08:25→22:42)
[2017-08-29] MEDS: Enoxaparin 40 mg Syringe SC SCH (10:08)
[2017-08-29] MEDS: Azithromycin 500 MG in Sodium Chloride 0.9% 250 ML IVPB SCH (10:09)
--- NOTE | 2017-08-29 22:01 | CP.PCM.PN ---
Subjective - Date & Time of Evaluation Date of Evaluation: 08/29/17 Time of Evaluation: 22:03 - Subjective Subjective: Improving, sputum culture pending Will follow ID and pulmonary consult. If TB culture negative will dc to snf for a total of 10 days of iv antibx. Will follow radiological studies in 4 weeks. Broncoscopy and bx as per pulmonary consult (still pending) Objective - Vital Signs/Intake and Output Vital Signs (last 24 hours): Temp Pulse Resp BP Pulse Ox 98.8 F 103 H 20 116/69 97 08/29/17 16:26 08/29/17 16:26 08/29/17 16:26 08/29/17 16:26 08/29/17 16:26 Intake and Output: 08/29/17 08/29/17 11:59 23:59 Intake Total 800 Balance 800 - Medications Medications: Current Medications Enalapril Maleate (Vasotec) 20 mg PO DAILY [facility] Last Admin: 08/29/17 10:09 Dose: 20 mg Enoxaparin Sodium (Lovenox) 40 mg SC DAILY [facility] Last Admin: 08/29/17 10:08 Dose: 40 mg Glipizide (Glucotrol) 10 mg PO ACB [facility] Last Admin: 08/29/17 07:45 Dose: 10 mg Imipenem/Cilastatin Sodium 500 (mg/ Sodium Chloride) 100 mls @ 100 mls/hr IVPB Q8H [facility] PRN Reason: Protocol Last Admin: 08/29/17 19:35 Dose: 100 mls/hr Insulin Human Regular (Novolin R) 0 unit SC ACHS [facility] PRN Reason: Protocol Last Admin: 08/29/17 16:53 Dose: Not Given Metformin HCl (Glucophage) 1,000 mg PO BIDCC [facility] Last Admin: 08/29/17 17:16 Dose: 1,000 mg Rosuvastatin Calcium (Crestor) 10 mg PO HS [facility] Last Admin: 08/29/17 21:20 Dose: 10 mg Sitagliptin Phosphate (Januvia) 100 mg PO DAILY [facility] Last Admin: 08/29/17 10:08 Dose: 100 mg - Labs Labs: 08/27/17 11:37 08/28/17 10:51 PT 12.2 SECONDS (9.7-12.2) 08/25/17 09:23 INR 1.1 08/25/17 09:23 APTT 31 SECONDS (21-34) 08/25/17 09:23 - Constitutional Appears: Non-toxic - Head Exam Head Exam: ATRAUMATIC, NORMAL INSPECTION, NORMOCEPHALIC - Eye Exam Eye Exam: Normal appearance - ENT Exam ENT Exam: Mucous Membranes Moist - Neck Exam Neck Exam: Full ROM, Normal Inspection - Respiratory Exam Respiratory Exam: Clear to Ausculation Bilateral, NORMAL BREATHING PATTERN - Cardiovascular Exam Cardiovascular Exam: REGULAR RHYTHM, +S1, +S2 - GI/Abdominal Exam GI & Abdominal Exam: Soft, Normal Bowel Sounds - Neurological Exam Neurological Exam: Alert, Awake, CN II-XII Intact, Normal Gait, Oriented x3 - Psychiatric Exam Psychiatric exam: Normal Mood - Skin Skin Exam: Dry Assessment and Plan (1) Consolidation of right upper lobe Status: Acute (2) Pneumonia Status: Acute (3) Lung cancer Status: Suspected (4) Chondrosarcoma Status: Suspected (5) Diabetes Status: Chronic (6) Hypertensive cardiovascular disease Status: Chronic (7) Hypertensive cardiovascular disease Status: Chronic (8) Microhematuria Status: Acute (9) Proteinuria Status: Acute (10) UTI (urinary tract infection) Status: Acute (11) 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 - Assessment and Plan (Free Text) Plan: as above
--- NOTE | 2017-08-29 22:04 | CP.PCM.CON ---
History of Present Illness - History of Present Illness History of Present Illness: Chief complaint: Abnormal CAT scan, pulmonary evaluation History of present illness: 61-year-old male with a history of diabetes and hypertension, controlled well, came to the emergency room with the left upper chest pain. Patient started having the symptoms recently. He started having some symptoms over 2 weeks, but started having more pain for the last few days. The pain was over the left upper clavicle region, associated with the pleuritic in nature. Sometimes dull aching pain also noted. Continuously pain noted. But now the pain is not that. He is feeling much better also. He was also complaining of some weakness and tiredness. But he did not have any cough. No fever or chills noted. He denied any sickness recently. No sick exposure. No history of tuberculosis in the past. Past medical history: Hypertension diabetes hypercholesteremia Allergy no known drug allergy Personal history nonsmoker. Patient had secondhand smoking He also denies any drug abuse, but occasional drinks beer Surgical history none Family history: Father had a history of cancer stroke. Mother also had a history of cancer Patient has 4 kids Review of system: Patient has no headache or visual symptom. He denies any chest pain now. He had a pain over the left upper chest region improved No nausea vomiting, loss of appetite is negative No leg edema noted On examination: Vital signs stable. No fever noted. Chest good air entry bilaterally regular heart sound. 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 Highly elevated d-dimer noted Elevated CRP also noted. Tuberculous test is showing evidence of intermediate interferon RPR negative, HIV negative Assessment and recommendation: Patient is a 61-year-old male with a history of diabetes and hypertension hypercholesterolemia admitted to the pleuritic chest pain. Minimal cough. And constitutional symptoms of mild infection. Patient now improved markedly with antibiotic. He is feeling better. Patient also had elevated ESR, CRP. WBC elevated All the signs and symptoms suggestive of possible acute pneumonia. But the CAT scan findings highly suggestive neoplastic in character. I spoke to the patient. In my opinion needle biopsy is appreciated for definite diagnosis. Assessment and recommendation: 61-year-old male with a history of hypertension, hypercholesterolemia and diabetes. Patient admitted with the pleuritic chest pain. Likely possible acute commuted to pneumonia. Underlying malignancy cannot be ruled out, I advised the patient to have a transthoracic needle biopsy because it is accessible very easily. Patient is considering. Will discuss with him tomorrow. If he agrees the patient may need intervention radiological consultation. Meanwhile agree with the current antibiotic and bronchodilator. Will follow-up the patient. Past Patient History - Tetanus Immunizations Tetanus Immunization: Unknown - Past Medical History & Family History Past Medical History?: Yes - Past Social History Smoking Status: Former Smoker Chewing Tobacco Use: No Occupation: [employer] Alcohol: Occasional Home Situation {Lives}: With Family - CARDIAC Hx Cardiac Disorders: Yes Hx Hypercholesterolemia: Yes Hx Hypertension: Yes - PULMONARY Hx Respiratory Disorders: No - NEUROLOGICAL Hx Neurological Disorder: No - HEENT Hx HEENT Problems: No - RENAL Hx Chronic Kidney Disease: No - ENDOCRINE/METABOLIC Hx Endocrine Disorders: Yes Hx Diabetes Mellitus Type 2: Yes - INTEGUMENTARY Hx Dermatological Problems: No - MUSCULOSKELETAL/RHEUMATOLOGICAL Hx Musculoskeletal Disorders: No Hx Falls: No - GASTROINTESTINAL Hx Gastrointestinal Disorders: No - GENITOURINARY/GYNECOLOGICAL Hx Genitourinary Disorders: No - PSYCHIATRIC Hx Substance Use: No - SURGICAL HISTORY Hx Surgeries: No - ANESTHESIA Hx Anesthesia: No Meds Allergies/Adverse Reactions: Allergies Allergy/AdvReac Type Severity Reaction Status Date / Time No Known Allergies Allergy Unverified 08/25/17 08:36 - Medications Medications: Current Medications Enalapril Maleate (Vasotec) 20 mg PO DAILY [facility] Last Admin: 08/29/17 10:09 Dose: 20 mg Enoxaparin Sodium (Lovenox) 40 mg SC DAILY [facility] Last Admin: 08/29/17 10:08 Dose: 40 mg Glipizide (Glucotrol) 10 mg PO ACB [facility] Last Admin: 08/29/17 07:45 Dose: 10 mg Imipenem/Cilastatin Sodium 500 (mg/ Sodium Chloride) 100 mls @ 100 mls/hr IVPB Q8H [facility] PRN Reason: Protocol Last Admin: 08/29/17 19:35 Dose: 100 mls/hr Insulin Human Regular (Novolin R) 0 unit SC ACHS [facility] PRN Reason: Protocol Last Admin: 08/29/17 16:53 Dose: Not Given Metformin HCl (Glucophage) 1,000 mg PO BIDCC [facility] Last Admin: 08/29/17 17:16 Dose: 1,000 mg Rosuvastatin Calcium (Crestor) 10 mg PO HS [facility] Last Admin: 08/29/17 21:20 Dose: 10 mg Sitagliptin Phosphate (Januvia) 100 mg PO DAILY [facility] Last Admin: 08/29/17 10:08 Dose: 100 mg Results - Vital Signs Recent Vital Signs: Last Vital Signs Temp 98.8 F 08/29/17 16:26 Pulse 103 H 08/29/17 16:26 Resp 20 08/29/17 16:26 BP 116/69 08/29/17 16:26 Pulse Ox 97 08/29/17 16:26 - Labs Result Diagrams: 08/27/17 11:37 08/28/17 10:51 Labs: Laboratory Results - last 24 hr 08/25/17 08/29/17 08/29/17 15:23 06:15 11:14 POC Glucose (mg/dL) 160 H 167 H [facility] Nuclear Membr Pat Negative 08/29/17 08/29/17 08/29/17 16:06 16:08 16:43 POC Glucose (mg/dL) 66 65 79 [facility] Nuclear Membr Pat 08/29/17 20:49 POC Glucose (mg/dL) 161 H [facility] Nuclear Membr Pat
--- NOTE | 2017-08-30 07:46 | CP.PCM.PN ---
Subjective - Date & Time of Evaluation Date of Evaluation: 08/30/17 Time of Evaluation: 07:46 - Subjective Subjective: Patient is alert and awake. Comfortable. Not in any distress. Cough minimal noted On examination: No fever, no chills. 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 Patient currently improving with antibiotic. But the repeat CT showing evidence of suspected malignancy like future. Suggested transthoracic biopsy. We will speak to the interventional radiology Objective - Vital Signs/Intake and Output Vital Signs (last 24 hours): Temp Pulse Resp BP Pulse Ox 98.1 F 90 20 106/77 96 08/30/17 07:00 08/30/17 07:00 08/30/17 07:00 08/30/17 07:00 08/30/17 07:00 Intake and Output: 08/30/17 08/30/17 06:59 18:59 Intake Total 900 Balance 900 - Medications Medications: Current Medications Enalapril Maleate (Vasotec) 20 mg PO DAILY [facility] Last Admin: 08/29/17 10:09 Dose: 20 mg Enoxaparin Sodium (Lovenox) 40 mg SC DAILY [facility] Last Admin: 08/29/17 10:08 Dose: 40 mg Glipizide (Glucotrol) 10 mg PO ACB [facility] Last Admin: 08/29/17 07:45 Dose: 10 mg Imipenem/Cilastatin Sodium 500 (mg/ Sodium Chloride) 100 mls @ 100 mls/hr IVPB Q8H [facility] PRN Reason: Protocol Last Admin: 08/30/17 04:50 Dose: 100 mls/hr Insulin Human Regular (Novolin R) 0 unit SC ACHS [facility] PRN Reason: Protocol Last Admin: 08/29/17 22:42 Dose: Not Given Metformin HCl (Glucophage) 1,000 mg PO BIDCC [facility] Last Admin: 08/29/17 17:16 Dose: 1,000 mg Rosuvastatin Calcium (Crestor) 10 mg PO HS [facility] Last Admin: 08/29/17 21:20 Dose: 10 mg Sitagliptin Phosphate (Januvia) 100 mg PO DAILY [facility] Last Admin: 08/29/17 10:08 Dose: 100 mg - Labs Labs: 08/27/17 11:37 08/28/17 10:51 PT 12.2 SECONDS (9.7-12.2) 08/25/17 09:23 INR 1.1 08/25/17 09:23 APTT 31 SECONDS (21-34) 08/25/17 09:23
[2017-08-30 07:52] LABS: BASO % 0.4 % (0.0-2.0); EOS # 0.2 K/uL (0.0-0.7); EOS % 1.6 % (0.0-4.0); HEMOGLOBIN 10.5 g/dL (12.0-18.0); LYMPH # 1.2 K/uL (1.0-4.3); LYMPH % 11.2 % (20.0-40.0); MEAN CELL VOLUME 91.9 fL (80.0-94.0); MEAN CORPUSCULAR HEMOGLOBIN 31.5 pg (27.0-31.0); MEAN CORPUSCULAR HGB CONC 34.2 g/dL (33.0-37.0); MEAN PLATELET VOLUME 8.3 fL (7.2-11.7); MONO # 1.1 K/uL (0.0-0.8); MONO % 9.6 % (0.0-10.0); NEUT # 8.5 K/uL (1.8-7.0); NEUT % 77.2 % (50.0-75.0); RBC 3.34 Mil/uL (4.40-5.90); RED CELL DISTRIBUTION WIDTH 13.1 % (11.5-14.5)
[2017-08-30 08:00] LABS: INR 1.1; PROTHROMBIN TIME 12.2 SECONDS (9.7-12.2)
[2017-08-30] MEDS: (Novolin R) Insulin Human Regular 100 units/ml vial SC SCH ×4 (08:20→21:26)
[2017-08-30] MEDS: Enoxaparin 40 mg Syringe SC SCH (10:09)
[2017-08-30 11:45] LABS: BLOOD UREA NITROGEN 19 mg/dL (9-20); CALCIUM 9.6 mg/dl (8.6-10.4); GFR AFRICAN-AMERICAN > 60; GFR NON-AFRICAN AMERICAN > 60
--- NOTE | 2017-08-30 14:01 | CP.PCM.PN ---
Subjective - Date & Time of Evaluation Date of Evaluation: 08/30/17 Time of Evaluation: 14:01 - Subjective Subjective: Patient responding to rx. Improving., culture still pending Discussed the case with oracle specialist the patient and family Objective - Vital Signs/Intake and Output Vital Signs (last 24 hours): Temp Pulse Resp BP Pulse Ox 98.1 F 90 20 106/77 96 08/30/17 07:00 08/30/17 07:00 08/30/17 07:00 08/30/17 10:09 08/30/17 07:00 - Medications Medications: Current Medications Enalapril Maleate (Vasotec) 20 mg PO DAILY [facility] Last Admin: 08/30/17 10:09 Dose: 20 mg Enoxaparin Sodium (Lovenox) 40 mg SC DAILY [facility] Last Admin: 08/30/17 10:09 Dose: 40 mg Glipizide (Glucotrol) 10 mg PO ACB [facility] Last Admin: 08/30/17 07:49 Dose: 10 mg Imipenem/Cilastatin Sodium 500 (mg/ Sodium Chloride) 100 mls @ 100 mls/hr IVPB Q8H [facility] PRN Reason: Protocol Last Admin: 08/30/17 12:57 Dose: 100 mls/hr Insulin Human Regular (Novolin R) 0 unit SC ACHS [facility] PRN Reason: Protocol Last Admin: 08/30/17 12:05 Dose: 1 unit Metformin HCl (Glucophage) 1,000 mg PO BIDCC [facility] Last Admin: 08/30/17 08:49 Dose: 1,000 mg Rosuvastatin Calcium (Crestor) 10 mg PO HS [facility] Last Admin: 08/29/17 21:20 Dose: 10 mg Sitagliptin Phosphate (Januvia) 100 mg PO DAILY [facility] Last Admin: 08/30/17 10:09 Dose: 100 mg - Labs Labs: 08/30/17 07:43 08/30/17 11:26 PT 12.2 SECONDS (9.7-12.2) 08/30/17 07:43 INR 1.1 08/30/17 07:43 APTT 31 SECONDS (21-34) 08/30/17 07:43 - Constitutional Appears: Non-toxic - Head Exam Head Exam: ATRAUMATIC, NORMAL INSPECTION - ENT Exam ENT Exam: Mucous Membranes Moist - Neck Exam Neck Exam: Full ROM - Respiratory Exam Respiratory Exam: Clear to Ausculation Bilateral - Cardiovascular Exam Cardiovascular Exam: REGULAR RHYTHM, +S1, +S2 - GI/Abdominal Exam GI & Abdominal Exam: Soft, Normal Bowel Sounds - Extremities Exam Extremities Exam: Normal Inspection - Back Exam Back Exam: NORMAL INSPECTION - Neurological Exam Neurological Exam: Alert, Awake, CN II-XII Intact, Normal Gait - Psychiatric Exam Psychiatric exam: Normal Affect - Skin Skin Exam: Normal Color Assessment and Plan (1) Consolidation of right upper lobe Status: Acute (2) Pneumonia Status: Acute (3) Lung cancer Status: Suspected (4) Chondrosarcoma Status: Suspected (5) Diabetes Status: Chronic (6) Hypertensive cardiovascular disease Status: Chronic (7) Hypertensive cardiovascular disease Status: Chronic (8) Microhematuria Status: Acute (9) Proteinuria Status: Acute (10) UTI (urinary tract infection) Status: Acute (11) 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
--- NOTE | 2017-08-30 21:17 | CP.PCM.PN ---
Subjective - Date & Time of Evaluation Date of Evaluation: 08/29/17 Time of Evaluation: 22:00 - Subjective Subjective: INFECTIOUS DISEASE PROGRESS NOTE COBY SANTIZO MD, FACP 5T 567 08/29/2017 CHART REVIEWED PT EXAMINED CASE DISCUSSED AFB'S NEGATIVE SO FAR X 3 AWAITING PULMONARY EVALUATION SHORTLY Objective - Vital Signs/Intake and Output Vital Signs (last 24 hours): Temp Pulse Resp BP Pulse Ox 97.9 F 85 20 115/73 95 08/30/17 15:00 08/30/17 15:00 08/30/17 15:00 08/30/17 15:00 08/30/17 15:00 Intake and Output: 08/30/17 08/31/17 18:59 06:59 Intake Total 100 Balance 100 - Medications Medications: Current Medications Enalapril Maleate (Vasotec) 20 mg PO DAILY [facility] Last Admin: 08/30/17 10:09 Dose: 20 mg Enoxaparin Sodium (Lovenox) 40 mg SC DAILY [facility] Last Admin: 08/30/17 10:09 Dose: 40 mg Glipizide (Glucotrol) 10 mg PO ACB [facility] Last Admin: 08/30/17 07:49 Dose: 10 mg Insulin Human Regular (Novolin R) 0 unit SC ACHS [facility] PRN Reason: Protocol Last Admin: 08/30/17 16:53 Dose: Not Given Metformin HCl (Glucophage) 1,000 mg PO BIDCC [facility] Last Admin: 08/30/17 17:04 Dose: 1,000 mg Rosuvastatin Calcium (Crestor) 10 mg PO HS [facility] Last Admin: 08/30/17 21:08 Dose: 10 mg Sitagliptin Phosphate (Januvia) 100 mg PO DAILY [facility] Last Admin: 08/30/17 10:09 Dose: 100 mg - Labs Labs: 08/30/17 07:43 08/30/17 11:26 PT 12.2 SECONDS (9.7-12.2) 08/30/17 07:43 INR 1.1 08/30/17 07:43 APTT 31 SECONDS (21-34) 08/30/17 07:43 Assessment and Plan (1) Mass of lung parenchyma Status: Acute (2) Mass of left lung Status: Acute (3) Diabetes Status: Chronic
--- NOTE | 2017-08-30 21:24 | CP.PCM.PN ---
Subjective - Date & Time of Evaluation Date of Evaluation: 08/30/17 Time of Evaluation: 21:19 - Subjective Subjective: INFECTIOUS DISEASE PROGRESS NOTES COBY SANTIZO MD, FACP 5T 567 08/30/2016 CHART REVIEWED RESPONDING TO MANAGEMENT CASE DISCUSSED ESR 90 CRP 140 FOR DECISION FOR BIOPSY SOON OR NOT. QUESTION OF LENGTH OF TREATMENT NOT CLEAR AND NOT PREDECIDED. Objective - Vital Signs/Intake and Output Vital Signs (last 24 hours): Temp Pulse Resp BP Pulse Ox 97.9 F 85 20 115/73 95 08/30/17 15:00 08/30/17 15:00 08/30/17 15:00 08/30/17 15:00 08/30/17 15:00 Intake and Output: 08/30/17 08/31/17 18:59 06:59 Intake Total 100 Balance 100 - Medications Medications: Current Medications Enalapril Maleate (Vasotec) 20 mg PO DAILY [facility] Last Admin: 08/30/17 10:09 Dose: 20 mg Enoxaparin Sodium (Lovenox) 40 mg SC DAILY [facility] Last Admin: 08/30/17 10:09 Dose: 40 mg Glipizide (Glucotrol) 10 mg PO ACB [facility] Last Admin: 08/30/17 07:49 Dose: 10 mg Insulin Human Regular (Novolin R) 0 unit SC [facility] PRN Reason: Protocol Last Admin: 08/30/17 16:53 Dose: Not Given Metformin HCl (Glucophage) 1,000 mg PO BIDCC [facility] Last Admin: 08/30/17 17:04 Dose: 1,000 mg Rosuvastatin Calcium (Crestor) 10 mg PO HS [facility] Last Admin: 08/30/17 21:08 Dose: 10 mg Sitagliptin Phosphate (Januvia) 100 mg PO DAILY [facility] Last Admin: 08/30/17 10:09 Dose: 100 mg - Labs Labs: 08/30/17 07:43 08/30/17 11:26 PT 12.2 SECONDS (9.7-12.2) 08/30/17 07:43 INR 1.1 08/30/17 07:43 APTT 31 SECONDS (21-34) 08/30/17 07:43 - Constitutional Appears: Non-toxic, No Acute Distress - Head Exam Head Exam: NORMAL INSPECTION - Eye Exam Eye Exam: Normal appearance - ENT Exam ENT Exam: Mucous Membranes Moist - Neck Exam Neck Exam: Normal Inspection - Respiratory Exam Respiratory Exam: Decreased Breath Sounds, Rhonchi, NORMAL BREATHING PATTERN - Cardiovascular Exam Cardiovascular Exam: REGULAR RHYTHM - GI/Abdominal Exam GI & Abdominal Exam: Soft - Rectal Exam Rectal Exam: Deferred - Back Exam Back Exam: absent: rash noted, tenderness - Neurological Exam Neurological Exam: Alert, Awake - Psychiatric Exam Psychiatric exam: Flat Affect, Normal Affect - Skin Skin Exam: Warm Assessment and Plan (1) Mass of lung parenchyma Status: Acute (2) Mass of left lung Status: Acute (3) Diabetes Status: Chronic (4) Pneumonia Status: Suspected
[2017-08-31 07:13] LABS: BASO % 0.4 % (0.0-2.0); EOS # 0.2 K/uL (0.0-0.7); EOS % 1.7 % (0.0-4.0); LYMPH # 1.5 K/uL (1.0-4.3); LYMPH % 13.1 % (20.0-40.0); MEAN CELL VOLUME 92.6 fL (80.0-94.0); MEAN CORPUSCULAR HGB CONC 33.5 g/dL (33.0-37.0); MEAN PLATELET VOLUME 8.1 fL (7.2-11.7); MONO % 9.1 % (0.0-10.0); NEUT # 8.7 K/uL (1.8-7.0); NEUT % 75.7 % (50.0-75.0); RBC 3.24 Mil/uL (4.40-5.90); RED CELL DISTRIBUTION WIDTH 13.1 % (11.5-14.5); WHITE BLOOD COUNT 11.4 K/uL (4.8-10.8)
[2017-08-31] MEDS: (Novolin R) Insulin Human Regular 100 units/ml vial SC SCH ×4 (08:20→22:30)
--- NOTE | 2017-08-31 09:42 | CP.PCM.PN ---
Subjective - Date & Time of Evaluation Date of Evaluation: 08/31/17 Time of Evaluation: 09:41 - Subjective Subjective: Patient is comfortable not in any distress. Chest good air entry Regular heart sounds Nontender abdomen Vital signs stable. Assessment and recommendation: 61-year-old male with history of diabetes and high cholesterol admitted with the pneumonia. Stable. Improving. We will discuss with interventional radiology for possible biopsy. We will follow the patient Objective - Vital Signs/Intake and Output Vital Signs (last 24 hours): Temp Pulse Resp BP Pulse Ox 97.5 F L 91 H 20 114/73 96 08/31/17 08:03 08/31/17 08:03 08/31/17 08:03 08/31/17 08:03 08/31/17 08:03 Intake and Output: 08/31/17 08/31/17 06:59 18:59 Intake Total 900 Balance 900 - Medications Medications: Current Medications Enalapril Maleate (Vasotec) 20 mg PO DAILY [facility] Last Admin: 08/30/17 10:09 Dose: 20 mg Enoxaparin Sodium (Lovenox) 40 mg SC DAILY [facility] Last Admin: 08/30/17 10:09 Dose: 40 mg Glipizide (Glucotrol) 10 mg PO ACB [facility] Last Admin: 08/31/17 08:20 Dose: 10 mg Insulin Human Regular (Novolin R) 0 unit SC [facility] PRN Reason: Protocol Last Admin: 08/31/17 08:20 Dose: 1 unit Metformin HCl (Glucophage) 1,000 mg PO BIDCC [facility] Last Admin: 08/31/17 08:48 Dose: 1,000 mg Rosuvastatin Calcium (Crestor) 10 mg PO HS [facility] Last Admin: 08/30/17 21:08 Dose: 10 mg Sitagliptin Phosphate (Januvia) 100 mg PO DAILY [facility] Last Admin: 08/30/17 10:09 Dose: 100 mg - Labs Labs: 08/31/17 06:52 08/30/17 11:26 PT 12.2 SECONDS (9.7-12.2) 08/30/17 07:43 INR 1.1 08/30/17 07:43 APTT 31 SECONDS (21-34) 08/30/17 07:43
[2017-08-31] MEDS: Enoxaparin 40 mg Syringe SC SCH (10:02)
--- NOTE | 2017-08-31 19:05 | CP.PCM.PN ---
Subjective - Date & Time of Evaluation Date of Evaluation: 08/31/17 Time of Evaluation: 19:00 - Subjective Subjective: INFECTIOUS DISEASE PROGRESS NOTES COBY SANTIZO MD, FACP 5T 567 08/31/2017 PAIN MEDS WE GET ALERTED BUT NOT ANTIBIOTICS, THEY JUST DROP... PLEASE NOTIFY ME WHEN AB AUTO STOP//CHANGED AFB'S NEGATIVE X 3 CHECK WITH INFECTION CONTROL TO POLICY - THANK YOU REPEAT CXR Objective - Vital Signs/Intake and Output Vital Signs (last 24 hours): Temp Pulse Resp BP Pulse Ox 97.9 F 99 H 20 109/71 96 08/31/17 15:50 08/31/17 15:50 08/31/17 15:50 08/31/17 15:50 08/31/17 15:50 - Medications Medications: Current Medications Enalapril Maleate (Vasotec) 20 mg PO DAILY [facility] Last Admin: 08/31/17 10:02 Dose: 20 mg Enoxaparin Sodium (Lovenox) 40 mg SC DAILY [facility] Last Admin: 08/31/17 10:02 Dose: 40 mg Glipizide (Glucotrol) 10 mg PO ACB [facility] Last Admin: 08/31/17 08:20 Dose: 10 mg Imipenem/Cilastatin Sodium 500 (mg/ Sodium Chloride) 100 mls @ 100 mls/hr IVPB Q8H [facility] PRN Reason: Protocol Insulin Human Regular (Novolin R) 0 unit SC ACHS [facility] PRN Reason: Protocol Last Admin: 08/31/17 17:20 Dose: Not Given Metformin HCl (Glucophage) 1,000 mg PO BIDCC [facility] Last Admin: 08/31/17 08:48 Dose: 1,000 mg Rosuvastatin Calcium (Crestor) 10 mg PO HS [facility] Last Admin: 08/30/17 21:08 Dose: 10 mg Sitagliptin Phosphate (Januvia) 100 mg PO DAILY [facility] Last Admin: 08/31/17 10:02 Dose: 100 mg - Labs Labs: 08/31/17 06:52 08/30/17 11:26 PT 12.2 SECONDS (9.7-12.2) 08/30/17 07:43 INR 1.1 08/30/17 07:43 APTT 31 SECONDS (21-34) 08/30/17 07:43 - Constitutional Appears: Non-toxic, No Acute Distress - Head Exam Head Exam: NORMAL INSPECTION - Eye Exam Eye Exam: Normal appearance - ENT Exam ENT Exam: Mucous Membranes Moist - Neck Exam Neck Exam: Normal Inspection - Respiratory Exam Respiratory Exam: NORMAL BREATHING PATTERN - Cardiovascular Exam Cardiovascular Exam: REGULAR RHYTHM - GI/Abdominal Exam GI & Abdominal Exam: Soft, Normal Bowel Sounds - Rectal Exam Rectal Exam: Deferred - Neurological Exam Neurological Exam: Alert, Awake - Psychiatric Exam Psychiatric exam: Anxious Assessment and Plan (1) Mass of lung parenchyma Status: Acute (2) Mass of left lung Status: Acute (3) Diabetes Status: Chronic (4) Pneumonia Status: Suspected
--- NOTE | 2017-08-31 22:01 | CP.PCM.PN ---
Subjective - Date & Time of Evaluation Date of Evaluation: 08/31/17 Time of Evaluation: 22:01 - Subjective Subjective: Sputum c/s pending continue present rx. Objective - Vital Signs/Intake and Output Vital Signs (last 24 hours): Temp Pulse Resp BP Pulse Ox 97.9 F 99 H 20 109/71 96 08/31/17 15:50 08/31/17 15:50 08/31/17 15:50 08/31/17 15:50 08/31/17 15:50 - Medications Medications: Current Medications Enalapril Maleate (Vasotec) 20 mg PO DAILY [facility] Last Admin: 08/31/17 10:02 Dose: 20 mg Enoxaparin Sodium (Lovenox) 40 mg SC DAILY [facility] Last Admin: 08/31/17 10:02 Dose: 40 mg Glipizide (Glucotrol) 10 mg PO ACB [facility] Last Admin: 08/31/17 08:20 Dose: 10 mg Imipenem/Cilastatin Sodium 500 (mg/ Sodium Chloride) 100 mls @ 100 mls/hr IVPB Q8H [facility] PRN Reason: Protocol Last Admin: 08/31/17 17:00 Dose: 100 mls/hr Insulin Human Regular (Novolin R) 0 unit SC ACHS [facility] PRN Reason: Protocol Last Admin: 08/31/17 17:20 Dose: Not Given Metformin HCl (Glucophage) 1,000 mg PO BIDCC [facility] Last Admin: 08/31/17 18:00 Dose: 1,000 mg Rosuvastatin Calcium (Crestor) 10 mg PO HS [facility] Last Admin: 08/30/17 21:08 Dose: 10 mg Sitagliptin Phosphate (Januvia) 100 mg PO DAILY [facility] Last Admin: 08/31/17 10:02 Dose: 100 mg - Labs Labs: 08/31/17 06:52 08/30/17 11:26 PT 12.2 SECONDS (9.7-12.2) 08/30/17 07:43 INR 1.1 08/30/17 07:43 APTT 31 SECONDS (21-34) 08/30/17 07:43 - Constitutional Appears: Non-toxic - Head Exam Head Exam: ATRAUMATIC, NORMAL INSPECTION. absent: NORMOCEPHALIC - Eye Exam Eye Exam: Normal appearance - ENT Exam ENT Exam: Mucous Membranes Moist - Neck Exam Neck Exam: Full ROM - Respiratory Exam Respiratory Exam: NORMAL BREATHING PATTERN - Cardiovascular Exam Cardiovascular Exam: REGULAR RHYTHM, +S1, +S2 - GI/Abdominal Exam GI & Abdominal Exam: Soft, Normal Bowel Sounds - Extremities Exam Extremities Exam: Full ROM, Normal Capillary Refill, Normal Inspection - Back Exam Back Exam: NORMAL INSPECTION - Neurological Exam Neurological Exam: Alert, Awake Assessment and Plan (1) Consolidation of right upper lobe Status: Acute (2) Pneumonia Status: Suspected (3) Lung cancer Status: Suspected (4) Chondrosarcoma Status: Suspected (5) Diabetes Status: Chronic (6) Hypertensive cardiovascular disease Status: Chronic (7) Hypertensive cardiovascular disease Status: Chronic (8) Microhematuria Status: Acute (9) Proteinuria Status: Acute (10) UTI (urinary tract infection) Status: Acute (11) 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 - Assessment and Plan (Free Text) Plan: Continue present rx continue isolation c/s pending case discussed with pulmonary and ID consult appreciated
[2017-09-01] MEDS: (Novolin R) Insulin Human Regular 100 units/ml vial SC SCH ×4 (07:30→22:37)
[2017-09-01] MEDS: Enoxaparin 40 mg Syringe SC SCH (10:20)
--- NOTE | 2017-09-01 13:00 | CP.PCM.PN ---
Subjective - Date & Time of Evaluation Date of Evaluation: 09/01/17 Time of Evaluation: 12:59 - Subjective Subjective: Patient is clinically stable. He is very comfortable. Not in any distress. No cough noted I spoke to the PMD. Patient will need a repeat CAT scan on Sunday. We will decide after the CAT scan, that patient will need biopsy or not. I also spoke to the interventional radiologist. He will decide on Sunday. We will follow the patient. Diagnosis left lung pneumonia, underlying mass cannot be ruled out. We will follow-up the patient Objective - Vital Signs/Intake and Output Vital Signs (last 24 hours): Temp Pulse Resp BP Pulse Ox 98.0 F 85 20 114/71 96 09/01/17 07:00 09/01/17 07:00 09/01/17 07:00 09/01/17 10:18 09/01/17 07:00 Intake and Output: 09/01/17 09/01/17 06:59 18:59 Intake Total 340 Balance 340 - Medications Medications: Current Medications Enalapril Maleate (Vasotec) 20 mg PO DAILY [facility] Last Admin: 09/01/17 10:18 Dose: 20 mg Enoxaparin Sodium (Lovenox) 40 mg SC DAILY [facility] Last Admin: 09/01/17 10:20 Dose: 40 mg Glipizide (Glucotrol) 10 mg PO ACB [facility] Last Admin: 09/01/17 08:19 Dose: 10 mg Imipenem/Cilastatin Sodium 500 (mg/ Sodium Chloride) 100 mls @ 100 mls/hr IVPB Q8H [facility] PRN Reason: Protocol Last Admin: 09/01/17 08:19 Dose: 100 mls/hr Insulin Human Regular (Novolin R) 0 unit SC ACHS [facility] PRN Reason: Protocol Last Admin: 09/01/17 12:22 Dose: 1 unit Metformin HCl (Glucophage) 1,000 mg PO BIDCC [facility] Last Admin: 09/01/17 08:18 Dose: 1,000 mg Rosuvastatin Calcium (Crestor) 10 mg PO HS [facility] Last Admin: 08/31/17 22:30 Dose: 10 mg Sitagliptin Phosphate (Januvia) 100 mg PO DAILY [facility] Last Admin: 09/01/17 10:19 Dose: 100 mg - Labs Labs: 08/31/17 06:52 08/30/17 11:26 PT 12.2 SECONDS (9.7-12.2) 08/30/17 07:43 INR 1.1 08/30/17 07:43 APTT 31 SECONDS (21-34) 08/30/17 07:43
--- NOTE | 2017-09-01 13:27 | CP.PCM.PN ---
Subjective - Date & Time of Evaluation Date of Evaluation: 09/01/17 Time of Evaluation: 13:24 - Subjective Subjective: INFECTIOUS DISEASE PROGRESS NOTES COBY SANTIZO MD, FACP 5T 567 09/01/2017 CHART REVIEWED PT EXAMINED CASE DISCUSSED WITH STAFF, CASSANDRA DE DIOS REPEAT CXR NL, PLAN IS TO REPEAT CT ON SUNDAY Patient is clinically stable. He is very comfortable. Not in any distress. No cough noted We will decide after the CAT scan, that patient will need biopsy or not.. He will decide on Sunday. We will follow the patient. Diagnosis left lung pneumonia, underlying mass cannot be ruled out. 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 Objective - Vital Signs/Intake and Output Vital Signs (last 24 hours): Temp Pulse Resp BP Pulse Ox 98.0 F 85 20 114/71 96 09/01/17 07:00 09/01/17 07:00 09/01/17 07:00 09/01/17 10:18 09/01/17 07:00 Intake and Output: 09/01/17 09/01/17 06:59 18:59 Intake Total 340 Balance 340 - Medications Medications: Current Medications Enalapril Maleate (Vasotec) 20 mg PO DAILY [facility] Last Admin: 09/01/17 10:18 Dose: 20 mg Enoxaparin Sodium (Lovenox) 40 mg SC DAILY [facility] Last Admin: 09/01/17 10:20 Dose: 40 mg Glipizide (Glucotrol) 10 mg PO ACB [facility] Last Admin: 09/01/17 08:19 Dose: 10 mg Imipenem/Cilastatin Sodium 500 (mg/ Sodium Chloride) 100 mls @ 100 mls/hr IVPB Q8H [facility] PRN Reason: Protocol Last Admin: 09/01/17 08:19 Dose: 100 mls/hr Insulin Human Regular (Novolin R) 0 unit SC ACHS [facility] PRN Reason: Protocol Last Admin: 09/01/17 12:22 Dose: 1 unit Metformin HCl (Glucophage) 1,000 mg PO BIDCC [facility] Last Admin: 09/01/17 08:18 Dose: 1,000 mg Rosuvastatin Calcium (Crestor) 10 mg PO HS [facility] Last Admin: 08/31/17 22:30 Dose: 10 mg Sitagliptin Phosphate (Januvia) 100 mg PO DAILY [facility] Last Admin: 09/01/17 10:19 Dose: 100 mg - Labs Labs: 08/31/17 06:52 08/30/17 11:26 PT 12.2 SECONDS (9.7-12.2) 08/30/17 07:43 INR 1.1 08/30/17 07:43 APTT 31 SECONDS (21-34) 08/30/17 07:43 Assessment and Plan (1) Mass of lung parenchyma Status: Acute (2) Mass of left lung Status: Acute (3) Diabetes Status: Chronic (4) Pneumonia Status: Suspected
--- NOTE | 2017-09-01 18:57 | CP.PCM.PN ---
Subjective - Date & Time of Evaluation Date of Evaluation: 09/01/17 Time of Evaluation: 18:57 - Subjective Subjective: Still the culture are pending , patient responding well to present rx. Objective - Vital Signs/Intake and Output Vital Signs (last 24 hours): Temp Pulse Resp BP Pulse Ox 98.2 F 99 H 20 106/69 93 L 09/01/17 15:00 09/01/17 15:00 09/01/17 15:00 09/01/17 15:00 09/01/17 15:00 Intake and Output: 09/01/17 09/01/17 11:59 23:59 Intake Total 340 Balance 340 - Medications Medications: Current Medications Enalapril Maleate (Vasotec) 20 mg PO DAILY [facility] Last Admin: 09/01/17 10:18 Dose: 20 mg Glipizide (Glucotrol) 10 mg PO ACB [facility] Last Admin: 09/01/17 08:19 Dose: 10 mg Imipenem/Cilastatin Sodium 500 (mg/ Sodium Chloride) 100 mls @ 100 mls/hr IVPB Q8H [facility] PRN Reason: Protocol Last Admin: 09/01/17 16:30 Dose: 100 mls/hr Insulin Human Regular (Novolin R) 0 unit SC ACHS [facility] PRN Reason: Protocol Last Admin: 09/01/17 16:57 Dose: Not Given Metformin HCl (Glucophage) 1,000 mg PO BIDCC [facility] Last Admin: 09/01/17 17:55 Dose: 1,000 mg Rosuvastatin Calcium (Crestor) 10 mg PO HS [facility] Last Admin: 08/31/17 22:30 Dose: 10 mg Sitagliptin Phosphate (Januvia) 100 mg PO DAILY [facility] Last Admin: 09/01/17 10:19 Dose: 100 mg - Labs Labs: 08/31/17 06:52 08/30/17 11:26 PT 12.2 SECONDS (9.7-12.2) 08/30/17 07:43 INR 1.1 08/30/17 07:43 APTT 31 SECONDS (21-34) 08/30/17 07:43 - Head Exam Head Exam: ATRAUMATIC, NORMAL INSPECTION, NORMOCEPHALIC - Eye Exam Eye Exam: Normal appearance - ENT Exam ENT Exam: Mucous Membranes Moist - Neck Exam Neck Exam: Full ROM - Respiratory Exam Respiratory Exam: Decreased Breath Sounds, Clear to Ausculation Bilateral - Cardiovascular Exam Cardiovascular Exam: REGULAR RHYTHM, +S1, +S2 - GI/Abdominal Exam GI & Abdominal Exam: Soft - Extremities Exam Extremities Exam: Full ROM - Psychiatric Exam Psychiatric exam: Normal Mood - Skin Skin Exam: Normal Color Assessment and Plan (1) Consolidation of right upper lobe Status: Acute (2) Pneumonia Status: Suspected (3) Lung cancer Status: Suspected (4) Chondrosarcoma Status: Suspected (5) Diabetes Status: Chronic (6) Hypertensive cardiovascular disease Status: Chronic (7) Hypertensive cardiovascular disease Status: Chronic (8) Microhematuria Status: Acute (9) Proteinuria Status: Acute (10) UTI (urinary tract infection) Status: Acute (11) 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
[2017-09-02] MEDS: (Novolin R) Insulin Human Regular 100 units/ml vial SC SCH ×4 (07:12→21:14)
[2017-09-02 09:02] LABS: BASO % 0.4 % (0.0-2.0); EOS # 0.1 K/uL (0.0-0.7); EOS % 1.2 % (0.0-4.0); HEMOGLOBIN 11.4 g/dL (12.0-18.0); LYMPH % 18.6 % (20.0-40.0); MEAN CELL VOLUME 92.5 fL (80.0-94.0); MEAN CORPUSCULAR HEMOGLOBIN 31.8 pg (27.0-31.0); MEAN CORPUSCULAR HGB CONC 34.4 g/dL (33.0-37.0); MONO # 0.8 K/uL (0.0-0.8); MONO % 7.2 % (0.0-10.0); NEUT # 7.6 K/uL (1.8-7.0); NEUT % 72.6 % (50.0-75.0); NRBC % 0.1 % (0.0-2.0); RBC 3.59 Mil/uL (4.40-5.90); RED CELL DISTRIBUTION WIDTH 13.2 % (11.5-14.5); WHITE BLOOD COUNT 10.5 K/uL (4.8-10.8)
--- NOTE | 2017-09-02 09:10 | RAD ---
HISTORY: MASS AND PNEUMONIA COMPARISON: Comparison is made with 08/25/2017 TECHNIQUE: Chest PA and lateral FINDINGS: LUNGS: No significant interval change in the lungs noted since the previous exam. Again noted is focal opacity and haziness at the mid to upper left chest corresponding to the mass lesions seen at the anterior left chest in the previous CT. PLEURA: No significant pleural effusion identified. No pneumothorax apparent. CARDIOVASCULAR: Normal. OSSEOUS STRUCTURES: No significant abnormalities. VISUALIZED UPPER ABDOMEN: Normal. OTHER FINDINGS: None. IMPRESSION: No significant interval change in the chest noted since the previous exam. Opacity at the anterior left chest better seen in the previous CT dated 08/25/2017.
[2017-09-02 09:19] LABS: BLOOD UREA NITROGEN 31 mg/dL (9-20); GFR AFRICAN-AMERICAN > 60; GFR NON-AFRICAN AMERICAN > 60
--- NOTE | 2017-09-02 15:41 | CP.PCM.PN ---
Subjective - Date & Time of Evaluation Date of Evaluation: 09/02/17 Time of Evaluation: 15:41 - Subjective Subjective: improving well continue present rx culture pending Objective - Vital Signs/Intake and Output Vital Signs (last 24 hours): Temp Pulse Resp BP Pulse Ox 97.9 F 90 20 104/65 94 L 09/02/17 08:00 09/02/17 08:00 09/02/17 08:00 09/02/17 10:25 09/02/17 08:00 Intake and Output: 09/02/17 09/02/17 11:59 23:59 Intake Total 700 Balance 700 - Medications Medications: Current Medications Enalapril Maleate (Vasotec) 20 mg PO DAILY [facility] Last Admin: 09/02/17 10:25 Dose: 20 mg Glipizide (Glucotrol) 10 mg PO ACB [facility] Last Admin: 09/02/17 06:46 Dose: 10 mg Imipenem/Cilastatin Sodium 500 (mg/ Sodium Chloride) 100 mls @ 100 mls/hr IVPB Q8H [facility] PRN Reason: Protocol Last Admin: 09/02/17 15:27 Dose: 100 mls/hr Insulin Human Regular (Novolin R) 0 unit SC ACHS [facility] PRN Reason: Protocol Last Admin: 09/02/17 11:30 Dose: Not Given Metformin HCl (Glucophage) 1,000 mg PO BIDCC [facility] Last Admin: 09/02/17 07:09 Dose: 1,000 mg Rosuvastatin Calcium (Crestor) 10 mg PO HS [facility] Last Admin: 09/01/17 22:36 Dose: 10 mg Sitagliptin Phosphate (Januvia) 100 mg PO DAILY [facility] Last Admin: 09/02/17 10:26 Dose: 100 mg - Labs Labs: 09/02/17 08:51 09/02/17 08:51 PT 12.2 SECONDS (9.7-12.2) 08/30/17 07:43 INR 1.1 08/30/17 07:43 APTT 31 SECONDS (21-34) 08/30/17 07:43 - Constitutional Appears: Non-toxic - Head Exam Head Exam: ATRAUMATIC, NORMAL INSPECTION, NORMOCEPHALIC - Eye Exam Eye Exam: Normal appearance - ENT Exam ENT Exam: Mucous Membranes Moist - Neck Exam Neck Exam: Full ROM - Respiratory Exam Respiratory Exam: Clear to Ausculation Bilateral - Cardiovascular Exam Cardiovascular Exam: REGULAR RHYTHM, +S1, +S2 - GI/Abdominal Exam GI & Abdominal Exam: Normal Bowel Sounds - Extremities Exam Extremities Exam: Full ROM - Neurological Exam Neurological Exam: Alert, Awake, CN II-XII Intact, Oriented x3 - Psychiatric Exam Psychiatric exam: Normal Affect - Skin Skin Exam: Normal Color Assessment and Plan (1) Consolidation of right upper lobe Status: Acute (2) Pneumonia Status: Suspected (3) Lung cancer Status: Suspected (4) Chondrosarcoma Status: Suspected (5) Diabetes Status: Chronic (6) Hypertensive cardiovascular disease Status: Chronic (7) Hypertensive cardiovascular disease Status: Chronic (8) Microhematuria Status: Acute (9) Proteinuria Status: Acute (10) UTI (urinary tract infection) Status: Acute (11) 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 - Assessment and Plan (Free Text) Plan: Continue present rx
[2017-09-03 07:25] LABS: SQUAMOUS EPITHIAL < 1 /hpf (0-5); URINE BILIRUBIN NEGATIVE (NEGATIVE); URINE BLOOD NEGATIVE (NEGATIVE); URINE CLARITY Clear (Clear); URINE COLOR Yellow (YELLOW); URINE GLUCOSE (UA) 1+ mg/dL (Normal); URINE LEUKOCYTE ESTERASE 1+ Leu/uL (Negative); URINE PROTEIN NEGATIVE (NEGATIVE)
[2017-09-03] MEDS: (Novolin R) Insulin Human Regular 100 units/ml vial SC SCH ×4 (07:27→21:36)
[2017-09-03 07:38] VITALS: RESP 20
[2017-09-03 08:18] LABS: BASO % 0.5 % (0.0-2.0); EOS # 0.1 K/uL (0.0-0.7); EOS % 1.1 % (0.0-4.0); HEMOGLOBIN 11.2 g/dL (12.0-18.0); INR 1.2; LYMPH # 1.9 K/uL (1.0-4.3); LYMPH % 20.4 % (20.0-40.0); MEAN CELL VOLUME 91.9 fL (80.0-94.0); MEAN CORPUSCULAR HEMOGLOBIN 31.9 pg (27.0-31.0); MEAN CORPUSCULAR HGB CONC 34.8 g/dL (33.0-37.0); MONO # 0.8 K/uL (0.0-0.8); MONO % 8.3 % (0.0-10.0); NEUT # 6.6 K/uL (1.8-7.0); NEUT % 69.7 % (50.0-75.0); PROTHROMBIN TIME 12.7 SECONDS (9.7-12.2); RBC 3.51 Mil/uL (4.40-5.90); RED CELL DISTRIBUTION WIDTH 13.1 % (11.5-14.5); WHITE BLOOD COUNT 9.5 K/uL (4.8-10.8)
--- NOTE | 2017-09-03 08:24 | CP.PCM.PN ---
Subjective - Date & Time of Evaluation Date of Evaluation: 09/02/17 Time of Evaluation: 08:23 - Subjective Subjective: Ration is comfortable not in any distress. Chest good air entry Regular heart sound. Nontender abdomen. Appetite is good. Vital signs stable. Assessment and recommendation: 61-year-old male admitted to the hospital with the symptoms of pneumonia. CAT scan of the chest is showing evidence of masslike lesions. I spoke to the intervention radiologist. We'll repeat the CAT scan tomorrow. In the IR will decide about the biopsy tomorrow. Will follow-up the patient Objective - Vital Signs/Intake and Output Vital Signs (last 24 hours): Temp Pulse Resp BP Pulse Ox 98.1 F 88 20 110/46 L 94 L 09/03/17 07:30 09/03/17 07:30 09/03/17 07:30 09/03/17 07:30 09/03/17 07:30 Intake and Output: 09/03/17 09/03/17 06:59 18:59 Intake Total 900 Balance 900 - Medications Medications: Current Medications Enalapril Maleate (Vasotec) 20 mg PO DAILY [facility] Last Admin: 09/02/17 10:25 Dose: 20 mg Glipizide (Glucotrol) 10 mg PO ACB [facility] Last Admin: 09/03/17 08:17 Dose: 10 mg Imipenem/Cilastatin Sodium 500 (mg/ Sodium Chloride) 100 mls @ 100 mls/hr IVPB Q8H [facility] PRN Reason: Protocol Last Admin: 09/03/17 08:17 Dose: 100 mls/hr Insulin Human Regular (Novolin R) 0 unit SC ACHS [facility] PRN Reason: Protocol Last Admin: 09/03/17 07:27 Dose: Not Given Metformin HCl (Glucophage) 1,000 mg PO BIDCC [facility] Last Admin: 09/03/17 08:17 Dose: 1,000 mg Rosuvastatin Calcium (Crestor) 10 mg PO HS [facility] Last Admin: 09/02/17 21:23 Dose: 10 mg Sitagliptin Phosphate (Januvia) 100 mg PO DAILY [facility] Last Admin: 09/02/17 10:26 Dose: 100 mg - Labs Labs: 09/03/17 08:02 09/02/17 08:51 PT 12.7 SECONDS (9.7-12.2) H 09/03/17 08:02 INR 1.2 09/03/17 08:02 APTT 35 SECONDS (21-34) H 09/03/17 08:02
[2017-09-03 08:30] LABS: BLOOD UREA NITROGEN 33 mg/dL (9-20); CALCIUM 9.9 mg/dl (8.6-10.4); GFR AFRICAN-AMERICAN > 60; GFR NON-AFRICAN AMERICAN 56
--- NOTE | 2017-09-03 12:12 | CT ---
CT chest History: Lung mass. Comparison: CT chest dated 08/25/2017 Technique: Multiple contiguous axial images were performed through the chest without the use of intravenous contrast. Subsequently, sagittal and coronal reformatted images were obtained. Impression: Left lung: Again identified is an ovoid 3.1 x 2.2 centimeter mass seen within the anterior aspect of the left upper lobe at the level of the right chest wall / pleura demonstrating a Hounsfield unit attenuation of 3 which may represent a cystic lesion. Correlation with soft tissue biopsy and or contrast-enhanced chest CT may be helpful for further evaluation if clinically indicated. Underlying neoplasm cannot be excluded. Again correlation with soft tissue biopsy may be helpful for further evaluation if clinically indicated. Mild atelectasis at the level of the inferior left upper lobe medially. Atelectasis within the left lower lobe. Right lung: Grossly preserved. Trachea thru central airways are patent. No significant hilar adenopathy. Heterogeneous thyroid. 1.3 centimeter prevascular lymph node. Aortic calcifications with prominent calcification at the aortic knob. 2.1 centimeter right peritracheal lymph node. Coronary calcifications. Mild fatty infiltration of the liver. Calcification within aorta. Degenerative changes in the spine. Impression: 1. Again identified is an ovoid 3.1 x 2.2 centimeter mass seen within the anterior aspect of the left upper lobe at the level of the right chest wall / pleura demonstrating a Hounsfield unit attenuation of 3 which may represent a cystic lesion. Correlation with soft tissue biopsy and or contrast-enhanced chest CT may be helpful for further evaluation if clinically indicated. Underlying neoplasm cannot be excluded. Again correlation with soft tissue biopsy may be helpful for further evaluation if clinically indicated. 2. 1.3 centimeter prevascular lymph node. 3. Aortic calcifications with prominent calcification at the aortic knob. 4. 2.1 centimeter right peritracheal lymph node. 5. Coronary calcifications. 6. Mild fatty infiltration of the liver.
--- NOTE | 2017-09-03 18:54 | CP.PCM.PN ---
Subjective - Date & Time of Evaluation Date of Evaluation: 09/03/17 Time of Evaluation: 18:52 - Subjective Subjective: Incentive repeat CAT scan reviewed Well defined masslike lesion in the left upper lung noted. I spoke to the interventional radiologist. As per interventional radiologist, the lesion looks like an inflammatory, and he was not in the process are interested in getting the biopsy. But CAT scan reading suggested tissue biopsy requested. I spoke to the PMD. PMD wanted to have their second opinion from another interventional radiologist. Awaiting. Will speak to the interventional radiologist, and the possible biopsy if they agree. Objective - Vital Signs/Intake and Output Vital Signs (last 24 hours): Temp Pulse Resp BP Pulse Ox 98 F 94 H 20 113/70 96 09/03/17 15:35 09/03/17 15:35 09/03/17 15:35 09/03/17 15:35 09/03/17 15:35 Intake and Output: 09/03/17 09/03/17 06:59 18:59 Intake Total 900 900 Balance 900 900 - Medications Medications: Current Medications Enalapril Maleate (Vasotec) 20 mg PO DAILY [facility] Last Admin: 09/03/17 09:08 Dose: 20 mg Glipizide (Glucotrol) 10 mg PO ACB [facility] Last Admin: 09/03/17 08:17 Dose: 10 mg Imipenem/Cilastatin Sodium 500 (mg/ Sodium Chloride) 100 mls @ 100 mls/hr IVPB Q8H [facility] PRN Reason: Protocol Last Admin: 09/03/17 16:51 Dose: 100 mls/hr Insulin Human Regular (Novolin R) 0 unit SC ACHS [facility] PRN Reason: Protocol Last Admin: 09/03/17 16:50 Dose: Not Given Metformin HCl (Glucophage) 1,000 mg PO BIDCC [facility] Last Admin: 09/03/17 16:50 Dose: Not Given Rosuvastatin Calcium (Crestor) 10 mg PO HS [facility] Last Admin: 09/02/17 21:23 Dose: 10 mg Sitagliptin Phosphate (Januvia) 100 mg PO DAILY [facility] Last Admin: 09/03/17 09:09 Dose: 100 mg - Labs Labs: 09/03/17 08:02 09/03/17 08:02 PT 12.7 SECONDS (9.7-12.2) H 09/03/17 08:02 INR 1.2 09/03/17 08:02 APTT 35 SECONDS (21-34) H 09/03/17 08:02
--- NOTE | 2017-09-03 19:42 | CP.PCM.PN ---
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 CLINICALLY LOOKS MUCH BETTER FROM THE INFECTIOUS PT OF VIEW FURTHER ATTEMPTS FOR A SECOND LUNG BIOPSY CONSULTATION FROM OUTSIDE CONSULTATION ? AGAIN, REVIEWED WITH VIRTUAL OFFICE ASSISTANT, NO COUGH, NO TEMPS Objective - Vital Signs/Intake and Output Vital Signs (last 24 hours): Temp Pulse Resp BP Pulse Ox 98 F 94 H 20 113/70 96 09/03/17 15:35 09/03/17 15:35 09/03/17 15:35 09/03/17 15:35 09/03/17 15:35 Intake and Output: 09/03/17 09/04/17 18:59 06:59 Intake Total 900 Balance 900 - Medications Medications: Current Medications Enalapril Maleate (Vasotec) 20 mg PO DAILY [facility] Last Admin: 09/03/17 09:08 Dose: 20 mg Glipizide (Glucotrol) 10 mg PO ACB [facility] Last Admin: 09/03/17 08:17 Dose: 10 mg Imipenem/Cilastatin Sodium 500 (mg/ Sodium Chloride) 100 mls @ 100 mls/hr IVPB Q8H [facility] PRN Reason: Protocol Last Admin: 09/03/17 16:51 Dose: 100 mls/hr Insulin Human Regular (Novolin R) 0 unit SC ACHS [facility] PRN Reason: Protocol Last Admin: 09/03/17 16:50 Dose: Not Given Metformin HCl (Glucophage) 1,000 mg PO BIDCC [facility] Last Admin: 09/03/17 16:50 Dose: Not Given Rosuvastatin Calcium (Crestor) 10 mg PO HS [facility] Last Admin: 09/02/17 21:23 Dose: 10 mg Sitagliptin Phosphate (Januvia) 100 mg PO DAILY [facility] Last Admin: 09/03/17 09:09 Dose: 100 mg - Labs Labs: 09/03/17 08:02 09/03/17 08:02 PT 12.7 SECONDS (9.7-12.2) H 09/03/17 08:02 INR 1.2 09/03/17 08:02 APTT 35 SECONDS (21-34) H 09/03/17 08:02 Assessment and Plan (1) Mass of lung parenchyma Status: Acute (2) Mass of left lung Status: Acute (3) Diabetes Status: Chronic (4) Pneumonia Status: Suspected
--- NOTE | 2017-09-03 23:40 | CP.PCM.PN ---
Subjective - Date & Time of Evaluation Date of Evaluation: 09/03/17 Time of Evaluation: 23:41 - Subjective Subjective: Clinically improving, repeated ctscan still reveled the presence of a mass. The TB culture are still reported as pending. Will follow IR consult. Continue presnt rx, isolation. Objective - Vital Signs/Intake and Output Vital Signs (last 24 hours): Temp Pulse Resp BP Pulse Ox 98 F 94 H 20 113/70 96 09/03/17 15:35 09/03/17 15:35 09/03/17 15:35 09/03/17 15:35 09/03/17 15:35 Intake and Output: 09/03/17 09/03/17 11:59 23:59 Intake Total 900 Balance 900 - Medications Medications: Current Medications Enalapril Maleate (Vasotec) 20 mg PO DAILY [facility] Last Admin: 09/03/17 09:08 Dose: 20 mg Glipizide (Glucotrol) 10 mg PO ACB [facility] Last Admin: 09/03/17 08:17 Dose: 10 mg Imipenem/Cilastatin Sodium 500 (mg/ Sodium Chloride) 100 mls @ 100 mls/hr IVPB Q8H [facility] PRN Reason: Protocol Last Admin: 09/03/17 16:51 Dose: 100 mls/hr Insulin Human Regular (Novolin R) 0 unit SC ACHS [facility] PRN Reason: Protocol Last Admin: 09/03/17 21:36 Dose: Not Given Metformin HCl (Glucophage) 1,000 mg PO BIDCC [facility] Last Admin: 09/03/17 16:50 Dose: Not Given Rosuvastatin Calcium (Crestor) 10 mg PO HS [facility] Last Admin: 09/03/17 21:35 Dose: 10 mg Sitagliptin Phosphate (Januvia) 100 mg PO DAILY [facility] Last Admin: 09/03/17 09:09 Dose: 100 mg - Labs Labs: 09/03/17 08:02 09/03/17 08:02 PT 12.7 SECONDS (9.7-12.2) H 09/03/17 08:02 INR 1.2 09/03/17 08:02 APTT 35 SECONDS (21-34) H 09/03/17 08:02 - Head Exam Head Exam: ATRAUMATIC, NORMAL INSPECTION, NORMOCEPHALIC - Eye Exam Eye Exam: Normal appearance - ENT Exam ENT Exam: Mucous Membranes Moist - Neck Exam Neck Exam: Full ROM - Respiratory Exam Respiratory Exam: Clear to Ausculation Bilateral - Cardiovascular Exam Cardiovascular Exam: REGULAR RHYTHM, +S1, +S2 - GI/Abdominal Exam GI & Abdominal Exam: Soft - Extremities Exam Extremities Exam: Full ROM, Normal Capillary Refill, Normal Inspection - Neurological Exam Neurological Exam: Alert, Awake, CN II-XII Intact, Oriented x3 Assessment and Plan (1) Consolidation of right upper lobe Status: Acute (2) Pneumonia Status: Suspected (3) Lung cancer Status: Suspected (4) Chondrosarcoma Status: Suspected (5) Diabetes Status: Chronic (6) Hypertensive cardiovascular disease Status: Chronic (7) Hypertensive cardiovascular disease Status: Chronic (8) Microhematuria Status: Acute (9) Proteinuria Status: Acute (10) UTI (urinary tract infection) Status: Acute (11) 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
[2017-09-04] MEDS: (Novolin R) Insulin Human Regular 100 units/ml vial SC SCH ×4 (08:00→22:52)
[2017-09-04] MEDS: Lactobacillus Acidophilus 500 MU Cap PO SCH (17:53)
--- NOTE | 2017-09-04 18:04 | CP.PCM.PN ---
Subjective - Date & Time of Evaluation Date of Evaluation: 09/04/17 Time of Evaluation: 18:04 - Subjective Subjective: No new changes. imbruing on present rx. For bx Objective - Vital Signs/Intake and Output Vital Signs (last 24 hours): Temp Pulse Resp BP Pulse Ox 98.1 F 109 H 20 100/62 95 09/04/17 15:44 09/04/17 15:44 09/04/17 15:44 09/04/17 15:44 09/04/17 15:44 - Medications Medications: Current Medications Enalapril Maleate (Vasotec) 20 mg PO DAILY [facility] Last Admin: 09/04/17 09:35 Dose: 20 mg Glipizide (Glucotrol) 10 mg PO ACB [facility] Last Admin: 09/04/17 08:30 Dose: 10 mg Imipenem/Cilastatin Sodium 500 (mg/ Sodium Chloride) 100 mls @ 100 mls/hr IVPB Q8H [facility] PRN Reason: Protocol Last Admin: 09/04/17 16:52 Dose: 100 mls/hr Insulin Human Regular (Novolin R) 0 unit SC ACHS [facility] PRN Reason: Protocol Last Admin: 09/04/17 17:01 Dose: Not Given Lactobacillus Acidophilus (Bacid Acidophilus) 1 cap PO BID [facility] Last Admin: 09/04/17 17:53 Dose: 1 cap Metformin HCl (Glucophage) 1,000 mg PO BIDCC [facility] Last Admin: 09/04/17 17:02 Dose: Not Given Rosuvastatin Calcium (Crestor) 10 mg PO HS [facility] Last Admin: 09/03/17 21:35 Dose: 10 mg Sitagliptin Phosphate (Januvia) 100 mg PO DAILY [facility] Last Admin: 09/04/17 09:35 Dose: 100 mg - Labs Labs: 09/03/17 08:02 09/03/17 08:02 PT 12.7 SECONDS (9.7-12.2) H 09/03/17 08:02 INR 1.2 09/03/17 08:02 APTT 35 SECONDS (21-34) H 09/03/17 08:02 - Constitutional Appears: Non-toxic - Head Exam Head Exam: ATRAUMATIC, NORMAL INSPECTION, NORMOCEPHALIC - Eye Exam Eye Exam: Normal appearance Pupil Exam: NORMAL ACCOMODATION - ENT Exam ENT Exam: Mucous Membranes Moist - Neck Exam Neck Exam: Full ROM - Respiratory Exam Respiratory Exam: Clear to Ausculation Bilateral - Cardiovascular Exam Cardiovascular Exam: REGULAR RHYTHM, +S1, +S2 - GI/Abdominal Exam GI & Abdominal Exam: Soft, Normal Bowel Sounds - Extremities Exam Extremities Exam: Normal Inspection - Neurological Exam Neurological Exam: Alert, Awake, Normal Gait, Oriented x3 - Psychiatric Exam Psychiatric exam: Normal Affect - Skin Skin Exam: Normal Color Assessment and Plan (1) Consolidation of right upper lobe Status: Acute (2) Pneumonia Status: Suspected (3) Lung cancer Status: Suspected (4) Chondrosarcoma Status: Suspected (5) Diabetes Status: Chronic (6) Hypertensive cardiovascular disease Status: Chronic (7) Hypertensive cardiovascular disease Status: Chronic (8) Microhematuria Status: Acute (9) Proteinuria Status: Acute (10) UTI (urinary tract infection) Status: Acute (11) 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 - Assessment and Plan (Free Text) Plan: As above
--- NOTE | 2017-09-04 21:31 | CP.PCM.PN ---
Subjective - Date & Time of Evaluation Date of Evaluation: 09/04/17 Time of Evaluation: 21:30 - Subjective Subjective: Patient is awake and alert. Not in any distress. I spoke to the PMD. I also spoke to the patient's daughter today. Initially patient was reluctant, and he was refusing for biopsy. After I spoke to the patient family. They agreed for possible biopsy. I also spoke to the interventional radiologist. Patient will be getting the biopsy tomorrow. I will follow the patient. Patient has a left upper lung masslike lesion, underlying pneumonia, neoplasm cannot be ruled out. Objective - Vital Signs/Intake and Output Vital Signs (last 24 hours): Temp Pulse Resp BP Pulse Ox 98.1 F 109 H 20 100/62 95 09/04/17 15:44 09/04/17 15:44 09/04/17 15:44 09/04/17 15:44 09/04/17 15:44 - Medications Medications: Current Medications Enalapril Maleate (Vasotec) 20 mg PO DAILY [facility] Last Admin: 09/04/17 09:35 Dose: 20 mg Glipizide (Glucotrol) 10 mg PO ACB [facility] Last Admin: 09/04/17 08:30 Dose: 10 mg Imipenem/Cilastatin Sodium 500 (mg/ Sodium Chloride) 100 mls @ 100 mls/hr IVPB Q8H [facility] PRN Reason: Protocol Last Admin: 09/04/17 16:52 Dose: 100 mls/hr Insulin Human Regular (Novolin R) 0 unit SC ACHS [facility] PRN Reason: Protocol Last Admin: 09/04/17 17:01 Dose: Not Given Lactobacillus Acidophilus (Bacid Acidophilus) 1 cap PO BID [facility] Last Admin: 09/04/17 17:53 Dose: 1 cap Metformin HCl (Glucophage) 1,000 mg PO BIDCC [facility] Last Admin: 09/04/17 17:02 Dose: Not Given Rosuvastatin Calcium (Crestor) 10 mg PO HS [facility] Last Admin: 09/03/17 21:35 Dose: 10 mg Sitagliptin Phosphate (Januvia) 100 mg PO DAILY [facility] Last Admin: 09/04/17 09:35 Dose: 100 mg - Labs Labs: 09/03/17 08:02 09/03/17 08:02 PT 12.7 SECONDS (9.7-12.2) H 09/03/17 08:02 INR 1.2 09/03/17 08:02 APTT 35 SECONDS (21-34) H 09/03/17 08:02
[2017-09-05] MEDS: (Novolin R) Insulin Human Regular 100 units/ml vial SC SCH ×3 (08:30→16:34)
[2017-09-05] MEDS: Lactobacillus Acidophilus 500 MU Cap PO SCH ×2 (09:10→17:39)
[2017-09-05] MEDS ORDERED: Midazolam 2 MG/2 ML VIAL ONE (11:17)
--- NOTE | 2017-09-05 13:04 | PCM.SURG1 ---
Surgeon's Initial Post Op Note - Surgeon's Notes Surgeon: Roque Ty MD International Marketing Coordinator: NONE Type of Anesthesia: IV Sedation Pre-Operative Diagnosis: Left lung mass Operative Findings: CT showed a 3.1 x 1.5 cm pleural base mass. Post-Operative Diagnosis: Left lung mass Operation Performed: CT/US guided biopsy Specimen/Specimens Removed: 20 gauge core x 3 Estimated Blood Loss: EBL {In ML}: 0 Blood Products Given: N/A Drains Used: No Drains Post-Op Condition: Good Date of Surgery/Procedure: 09/05/17 Time of Surgery/Procedure: 11:35
--- NOTE | 2017-09-05 13:12 | CT ---
PROCEDURE: Date of procedure: 09/05/2017 Procedure: 1. CT-guided lung mass biopsy, CPT [address] Guidance for biopsy, [address] Radiation:622.24mGy-cm Medications: The patient was sedated by anesthesiologist along with physiologic monitoring, Lidocaine 2% 5 cc HISTORY: Left upper lobe lung mass TECHNIQUE: Following informed consent and procedure time out, the patient was placed supine on the CT table and noncontrast CT scan was performed. Noncontrast CT scan confirmed the presence of a 3.1 cm left lung mass that is pleural based. A skin localizer was placed on the patient's LEFT chest and a repeat CT scan was performed. The skin was marked, prepped, and draped in the usual sterile fashion. Ultrasound performed showed a solid mass. After the skin was anesthetized with lidocaine and the patient sedated by the anesthesiologist, a 20 gauge core needle was advanced percutaneously under direct ultrasound guidance into the mass. Upon confirmation of needle position, Two 20-gauge core specimens were obtained and sent for routine pathology. The needle was removed and a xeroform dressing was applied. A post biopsy CT scan showed no pneumothorax. IMPRESSION: CT guided core biopsy left lung mass.
--- NOTE | 2017-09-05 13:14 | US ---
HISTORY: Left pleural-based anterior lung mass TECHNIQUE/FINDINGS: Ultrasound guidance was utilized for pleural-based mass biopsy. Ultrasound performed showed a solid isoechoic pleural-based mass adjacent to an anterior rib. After the skin was prepped and draped in the usual sterile fashion and skin anesthetized with lidocaine, 20 gauge needle was advanced under direct ultrasound guidance into the mass. Position of the needle was confirmed with CT scan. Three 20 gauge core specimens were obtained and sent for routine histology. OTHER FINDINGS: None. IMPRESSION: Left pleural-based anterior lung mass. Ultrasound-guided biopsy.
--- NOTE | 2017-09-05 13:29 | RAD ---
HISTORY: s/p left lung mass biopsy COMPARISON: Chest radiograph dated 09/01/2017 FINDINGS: LUNGS: Low lung volumes. No active pulmonary disease. PLEURA: No significant pleural effusion identified, no pneumothorax apparent. CARDIOVASCULAR: Atherosclerotic aortic calcifications. Cardiomediastinal silhouette within normal limits. OSSEOUS STRUCTURES: Unchanged. VISUALIZED UPPER ABDOMEN: Normal. OTHER FINDINGS: None. IMPRESSION: No active disease. No appreciable pneumothorax post left lung biopsy.
[2017-09-05 15:47] VITALS: BP 110/69; PULSE 94; TEMP 97.8; O2SAT 99
--- NOTE | 2017-09-05 17:51 | CP.PCM.PN ---
Subjective - Date & Time of Evaluation Date of Evaluation: 09/04/17 Time of Evaluation: 16:20 - Subjective Subjective: INFECTIOUS DISEASE PROGRESS NOTE COBY SANTIZO MD, FACP 5T 554 09/04/2017 CHART REVIEWED EXAMINE NOTED CASE DISCUSSED No new changes. DEFINITELY IMPROVING DAILY FINALLY FOR A BIOPSY Objective - Vital Signs/Intake and Output Vital Signs (last 24 hours): Temp Pulse Resp BP Pulse Ox 98.1 F 109 H 20 100/62 95 09/04/17 15:44 09/04/17 15:44 09/04/17 15:44 09/04/17 15:44 09/04/17 15:44 - Medications Medications: Current Medications Enalapril Maleate (Vasotec) 20 mg PO DAILY [facility] Last Admin: 09/04/17 09:35 Dose: 20 mg Glipizide (Glucotrol) 10 mg PO ACB [facility] Last Admin: 09/04/17 08:30 Dose: 10 mg Imipenem/Cilastatin Sodium 500 (mg/ Sodium Chloride) 100 mls @ 100 mls/hr IVPB Q8H [facility] PRN Reason: Protocol Last Admin: 09/04/17 16:52 Dose: 100 mls/hr Insulin Human Regular (Novolin R) 0 unit SC ACHS [facility] PRN Reason: Protocol Last Admin: 09/04/17 17:01 Dose: Not Given Lactobacillus Acidophilus (Bacid Acidophilus) 1 cap PO BID [facility] Last Admin: 09/04/17 17:53 Dose: 1 cap Metformin HCl (Glucophage) 1,000 mg PO BIDCC [facility] Last Admin: 09/04/17 17:02 Dose: Not Given Rosuvastatin Calcium (Crestor) 10 mg PO HS [facility] Last Admin: 09/03/17 21:35 Dose: 10 mg Sitagliptin Phosphate (Januvia) 100 mg PO DAILY [facility] Last Admin: 09/04/17 09:35 Dose: 100 mg - Labs Labs: 09/03/17 08:02 09/03/17 08:02 PT 12.7 SECONDS (9.7-12.2) H 09/03/17 08:02 INR 1.2 09/03/17 08:02 APTT 35 SECONDS (21-34) H 09/03/17 08:02 - Constitutional Appears: Non-toxic - Head Exam Head Exam: ATRAUMATIC, NORMAL INSPECTION, NORMOCEPHALIC - Eye Exam Eye Exam: Normal appearance Pupil Exam: NORMAL ACCOMODATION - ENT Exam ENT Exam: Mucous Membranes Moist - Neck Exam Neck Exam: Full ROM - Respiratory Exam Respiratory Exam: Clear to Ausculation Bilateral - Cardiovascular Exam Cardiovascular Exam: REGULAR RHYTHM, +S1, +S2 - GI/Abdominal Exam GI & Abdominal Exam: Soft, Normal Bowel Sounds - Extremities Exam Extremities Exam: Normal Inspection - Neurological Exam Neurological Exam: Alert, Awake, Normal Gait, Oriented x3 - Psychiatric Exam Psychiatric exam: Normal Affect - Skin Skin Exam: Normal Color Assessment and Plan (1) Consolidation of right upper lobe Status: Acute (2) Pneumonia Status: Suspected (3) Lung cancer Status: Suspected (4) Chondrosarcoma Status: Suspected (5) Diabetes Status: Chronic (6) Hypertensive cardiovascular disease Status: Chronic (7) Hypertensive cardiovascular disease Status: Chronic (8) Microhematuria Status: Acute (9) Proteinuria Status: Acute (10) UTI (urinary tract infection) Status: Acute Objective - Vital Signs/Intake and Output Vital Signs (last 24 hours): Temp Pulse Resp BP Pulse Ox 97.8 F 94 H 20 110/69 99 09/05/17 15:46 09/05/17 15:46 09/05/17 15:46 09/05/17 15:46 09/05/17 15:46 - Medications Medications: Current Medications Enalapril Maleate (Vasotec) 20 mg PO DAILY [facility] Last Admin: 09/05/17 09:11 Dose: Not Given Glipizide (Glucotrol) 10 mg PO ACB [facility] Last Admin: 09/05/17 08:30 Dose: Not Given Imipenem/Cilastatin Sodium 500 (mg/ Sodium Chloride) 100 mls @ 100 mls/hr IVPB Q8H [facility] PRN Reason: Protocol Last Admin: 09/05/17 16:33 Dose: 100 mls/hr Insulin Human Regular (Novolin R) 0 unit SC ACHS [facility] PRN Reason: Protocol Last Admin: 09/05/17 16:34 Dose: 1 unit Lactobacillus Acidophilus (Bacid Acidophilus) 1 cap PO BID [facility] Last Admin: 09/05/17 17:39 Dose: 1 cap Metformin HCl (Glucophage) 1,000 mg PO BIDCC [facility] Last Admin: 09/05/17 16:33 Dose: 1,000 mg Rosuvastatin Calcium (Crestor) 10 mg PO HS [facility] Last Admin: 09/04/17 22:56 Dose: 10 mg Sitagliptin Phosphate (Januvia) 100 mg PO DAILY [facility] Last Admin: 09/05/17 09:10 Dose: Not Given - Labs Labs: 09/03/17 08:02 09/03/17 08:02 PT 12.7 SECONDS (9.7-12.2) H 09/03/17 08:02 INR 1.2 09/03/17 08:02 APTT 35 SECONDS (21-34) H 09/03/17 08:02 Assessment and Plan (1) Mass of lung parenchyma Status: Acute (2) Mass of left lung Status: Acute (3) Diabetes Status: Chronic (4) Pneumonia Status: Suspected
--- NOTE | 2017-09-05 17:53 | CP.PCM.PN ---
Subjective - Date & Time of Evaluation Date of Evaluation: 09/05/17 Time of Evaluation: 17:51 - Subjective Subjective: INFECTIOUS DISEASE PROGRESS NOTES COBY SANTIZO MD, FACP 5T 554 09/05/2017 CHART NOTED CASE REVIEWED POST BIOPSY OF LUNG MASS ON PRIMAXIN TO [facility]EE TOMORROW. Objective - Vital Signs/Intake and Output Vital Signs (last 24 hours): Temp Pulse Resp BP Pulse Ox 97.8 F 94 H 20 110/69 99 09/05/17 15:46 09/05/17 15:46 09/05/17 15:46 09/05/17 15:46 09/05/17 15:46 - Medications Medications: Current Medications Enalapril Maleate (Vasotec) 20 mg PO DAILY [facility] Last Admin: 09/05/17 09:11 Dose: Not Given Glipizide (Glucotrol) 10 mg PO ACB [facility] Last Admin: 09/05/17 08:30 Dose: Not Given Imipenem/Cilastatin Sodium 500 (mg/ Sodium Chloride) 100 mls @ 100 mls/hr IVPB Q8H [facility] PRN Reason: Protocol Last Admin: 09/05/17 16:33 Dose: 100 mls/hr Insulin Human Regular (Novolin R) 0 unit SC ACHS [facility] PRN Reason: Protocol Last Admin: 09/05/17 16:34 Dose: 1 unit Lactobacillus Acidophilus (Bacid Acidophilus) 1 cap PO BID [facility] Last Admin: 09/05/17 17:39 Dose: 1 cap Metformin HCl (Glucophage) 1,000 mg PO BIDCC [facility] Last Admin: 09/05/17 16:33 Dose: 1,000 mg Rosuvastatin Calcium (Crestor) 10 mg PO HS [facility] Last Admin: 09/04/17 22:56 Dose: 10 mg Sitagliptin Phosphate (Januvia) 100 mg PO DAILY [facility] Last Admin: 09/05/17 09:10 Dose: Not Given - Labs Labs: 09/03/17 08:02 09/03/17 08:02 PT 12.7 SECONDS (9.7-12.2) H 09/03/17 08:02 INR 1.2 09/03/17 08:02 APTT 35 SECONDS (21-34) H 09/03/17 08:02 Assessment and Plan (1) Mass of lung parenchyma Status: Acute (2) Mass of left lung Status: Acute (3) Diabetes Status: Chronic (4) Pneumonia Status: Suspected
--- NOTE | 2017-09-05 21:50 | CP.PCM.DIS ---
Provider - Provider Date of Admission: 08/26/17 14:19 Attending physician: Bhavik Hua MD Time Spent in preparation of Discharge (in minutes): 30 Diagnosis - Discharge Diagnosis (1) Consolidation of right upper lobe Status: Acute (2) Pneumonia Status: Suspected (3) Lung cancer Status: Suspected (4) Chondrosarcoma Status: Suspected (5) Diabetes Status: Chronic Priority: Medium (6) Hypertensive cardiovascular disease Status: Chronic (7) Hypertensive cardiovascular disease Status: Chronic (8) Microhematuria Status: Acute (9) Proteinuria Status: Acute (10) UTI (urinary tract infection) Status: Acute (11) 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 Hospital Course - Lab Results Lab Results: Micro Results 09/05/17 14:28 Lung Gram Stain - Final 08/28/17 10:51 Other: Please Indicate Mycobacterial Culture - Preliminary 08/27/17 14:11 Other: Please Indicate Mycobacterial Culture - Preliminary 08/25/17 13:00 Blood-Venous Blood Culture - Final NO GROWTH AFTER 5 DAYS 08/25/17 16:50 Blood-Venous Blood Culture - Final NO GROWTH AFTER 5 DAYS 08/28/17 14:19 Other: Please Indicate Mycobacterial Culture - Preliminary 08/25/17 15:29 Urine Urine Culture - Final No Growth (<1,000 CFU/ML) Most Recent Lab Values WBC 9.5 K/uL (4.8-10.8) 09/03/17 08:02 RBC 3.51 Mil/uL (4.40-5.90) L 09/03/17 08:02 Hgb 11.2 g/dL (12.0-18.0) L 09/03/17 08:02 Hct 32.2 % (35.0-51.0) L 09/03/17 08:02 MCV 91.9 fL (80.0-94.0) 09/03/17 08:02 MCH 31.9 pg (27.0-31.0) H 09/03/17 08:02 MCHC 34.8 g/dL (33.0-37.0) 09/03/17 08:02 RDW 13.1 % (11.5-14.5) 09/03/17 08:02 Plt Count 561 K/uL (130-400) H 09/03/17 08:02 MPV 8.0 fL (7.2-11.7) 09/03/17 08:02 Neut % (Auto) 69.7 % (50.0-75.0) 09/03/17 08:02 Lymph % (Auto) 20.4 % (20.0-40.0) 09/03/17 08:02 Emanuel % (Auto) 8.3 % (0.0-10.0) 09/03/17 08:02 Eos % (Auto) 1.1 % (0.0-4.0) 09/03/17 08:02 Baso % (Auto) 0.5 % (0.0-2.0) 09/03/17 08:02 Neut # (Auto) 6.6 K/uL (1.8-7.0) 09/03/17 08:02 Lymph # (Auto) 1.9 K/uL (1.0-4.3) 09/03/17 08:02 Emanuel # (Auto) 0.8 K/uL (0.0-0.8) 09/03/17 08:02 Eos # (Auto) 0.1 K/uL (0.0-0.7) 09/03/17 08:02 Baso # (Auto) 0.0 K/uL (0.0-0.2) 09/03/17 08:02 Neutrophils % (Manual) 96 % (50-75) H 08/26/17 07:57 Lymphocytes % (Manual) 2 % (20-40) L 08/26/17 07:57 Monocytes % (Manual) 1 % (0-10) 08/26/17 07:57 Eosinophils % (Manual) 1 % (0-4) 08/26/17 07:57 Platelet Estimate Normal (NORMAL) 08/26/17 07:57 RBC Morphology Normal 08/26/17 07:57 ESR 114 mm/hr (0-15) H 08/31/17 06:52 PT 12.7 SECONDS (9.7-12.2) H 09/03/17 08:02 INR 1.2 09/03/17 08:02 APTT 35 SECONDS (21-34) H 09/03/17 08:02 D-Dimer, Quantitative 1047 ng/mlDDU (0-243) H 08/25/17 15:23 Sodium 142 mmol/L (132-148) 09/03/17 08:02 Potassium 5.2 mmol/L (3.6-5.2) 09/03/17 08:02 Chloride 102 mmol/L (98-107) 09/03/17 08:02 Carbon Dioxide 26 mmol/L (22-30) 09/03/17 08:02 Anion Gap 18 (10-20) 09/03/17 08:02 BUN 33 mg/dL (9-20) H 09/03/17 08:02 Creatinine 1.3 mg/dL (0.8-1.5) 09/03/17 08:02 Est GFR ( Amer) > 60 09/03/17 08:02 Est GFR (Non-Af Amer) 56 09/03/17 08:02 POC Glucose (mg/dL) 168 mg/dL (65-110) H 09/05/17 15:59 Random Glucose 153 mg/dL (75-110) H 09/03/17 08:02 Hemoglobin A1c 7.3 % (4.2-6.5) H 08/28/17 07:09 Calcium 9.9 mg/dl (8.6-10.4) 09/03/17 08:02 Total Bilirubin 0.7 mg/dL (0.2-1.3) 08/26/17 07:57 AST 37 U/L (17-59) 08/26/17 07:57 ALT 62 U/L (21-72) 08/26/17 07:57 Alkaline Phosphatase 116 U/L (38-126) 08/26/17 07:57 Total Creatine Kinase 79 U/L (55-170) 08/25/17 09:23 CK-MB (Mass) 0.47 ng/mL (0.0-3.38) 08/25/17 09:23 Troponin I < 0.0120 ng/mL (0.00-0.120) 08/25/17 09:23 C-Reactive Protein 67.30 mg/L (0.0-9.9) H 08/31/17 06:52 NT-Pro-B Natriuret Pep 67.8 pg/mL (0-900) 08/25/17 09:23 Total Protein 7.1 g/dL (6.3-8.3) 08/26/17 07:57 Albumin 3.5 g/dL (3.5-5.0) 08/26/17 07:57 Globulin 3.6 gm/dL (2.2-3.9) 08/26/17 07:57 Albumin/Globulin Ratio 1.0 (1.0-2.1) 08/26/17 07:57 Carcinoembryonic Ag 1.4 ng/mL (0-3.0) 08/28/17 07:09 Prostate Specific Ag 2.24 ng/mL (0.00-4.0) 08/28/17 07:09 TSH 3rd Generation 1.47 mIU/L (0.46-4.68) 08/25/17 15:23 Urine Color Yellow (YELLOW) 09/03/17 07:13 Urine Clarity Clear (Clear) 09/03/17 07:13 Urine pH 5.0 (5.0-8.0) 09/03/17 07:13 Ur Specific Cascade 1.018 (1.003-1.030) 09/03/17 07:13 Urine Protein Negative mg/dL (NEGATIVE) 09/03/17 07:13 Urine Glucose (UA) 1+ mg/dL (Normal) H 09/03/17 07:13 Urine Ketones Trace mg/dL (NEGATIVE) 09/03/17 07:13 Urine Blood Negative (NEGATIVE) 09/03/17 07:13 Urine Nitrate Negative (NEGATIVE) 09/03/17 07:13 Urine Bilirubin Negative (NEGATIVE) 09/03/17 07:13 Urine Urobilinogen 2.0 mg/dL (0.2-1.0) 09/03/17 07:13 Ur Leukocyte Esterase 1+ Kelly/uL (Negative) H 09/03/17 07:13 Urine WBC (Auto) 9 /hpf (0-5) H 09/03/17 07:13 Urine RBC (Auto) 1 /hpf (0-3) 09/03/17 07:13 Ur Squamous Epith Cells < 1 /hpf (0-5) 09/03/17 07:13 Urine Bacteria Rare (<OCC) 08/27/17 13:16 Hyaline Casts 6-10 /lpf (0-2) H 08/25/17 09:23 Rheumatoid Factor IgG <5 U (<=6) 08/25/17 15:23 Rheumatoid Factor IgA <5 U (<=6) 08/25/17 15:23 Rheumatoid Factor IgM <5 U (<=6) 08/25/17 15:23 YOSSI Nuclear Membr Pat Negative (Negative) 08/25/17 15:23 RPR Nonreactive (NONREACTIVE) 08/28/17 07:09 Histoplasma Ab Imm Diff Negative (Negative) 08/28/17 07:09 Histop Galactomannan Ag <0.5 ng/mL 08/28/17 20:38 HIV 1&2 Antibody Screen Negative (NEGATIVE) 08/28/17 07:09 Mycoplasma pneumon IgM Negative (NEGATIVE) 08/25/17 15:23 TB Test (QFT) Nil 0.04 IU/mL 08/26/17 07:57 TB Test Mitogen - Nil 0.14 IU/mL 08/26/17 07:57 TB Test TB - Nil <0.00 IU/mL 08/26/17 07:57 TB Test (QFT) Indeterminate (Negative) H 08/26/17 07:57 - Hospital Course Hospital Course: 61 y/o male with hx of DM2, HTN presented in ER c/o of pain in the upper anterior lt side of the chest the pain are pleuritic in nature. He c/o general malaise since Sunday. Also he presents with not productive cough, and chest pain when coughing. The pain is also radiating to his back. Patient has noticed some swelling to the left side of chest wall, which is painful to touch. The radiological studies reveled a lung mass with extension to the anterior chest wall . The nature of this lesion is not clear. He was placed isolation precaution to r/o TB. Patient improved on antibx rx. Repeated ctscan still reveled the persistence of a mass. A bx was performed,. At present time the patient stable and not under on isolation. Will dc home with close f/u with pulmonary and my office. The patient educated on the possibility of malignancy and the necessity to f/u for further dx and rx. Discharge Exam - Head Exam Head Exam: ATRAUMATIC, NORMAL INSPECTION, NORMOCEPHALIC - Eye Exam Eye Exam: Normal appearance, PERRL - ENT Exam ENT Exam: Normal Oropharynx - Neck Exam Neck exam: Full Rom - Respiratory Exam Respiratory Exam: Clear to PA & Lateral - Cardiovascular Exam Cardiovascular Exam: REGULAR RHYTHM, +S1, +S2 - GI/Abdominal Exam GI & Abdominal Exam: Normal Bowel Sounds - Extremities Exam Extremities exam: normal inspection - Neurological Exam Neurological exam: Alert, CN II-XII Intact, Normal Gait, Oriented x3, Reflexes Normal - Psychiatric Exam Psychiatric exam: Normal Mood - Skin Skin Exam: Normal Color Discharge Plan - Follow Up Plan Condition: FAIR Disposition: HOME/ ROUTINE Instructions: Pneumonia, Adult (DC), Diabetes Diet , Diabetes Type 2 (DC), Urinary Tract Infection in Men (DC) Additional Instructions: Follow up with Dr Hua in 2 days. Follow up with pulmonary doctor, Dr. Mcgee, as soon as possible. Referrals: Sejal Starkey MD [Staff Provider] - Bhavik Hua MD [Staff Provider] - Denice Mcgee MD [Staff Provider] -
--- NOTE | 2017-09-06 18:36 | CP.PCM.PN ---
Subjective - Date & Time of Evaluation Date of Evaluation: 09/05/17 Time of Evaluation: 18:35 - Subjective Subjective: Patient today underwent a biopsy. I spoke to the patient's PMD. Also I spoke to the patient's daughter. Patient is clinically stable. Patient can be discharged home today. He will follow-up as an outpatient for the biopsy results and further management. Meanwhile patient is to identify antibiotic at this time, he will continue bronchodilators as needed. We will follow the patient Objective - Vital Signs/Intake and Output Vital Signs (last 24 hours): Temp Pulse Resp BP Pulse Ox 97.8 F 94 H 20 110/69 99 09/05/17 15:46 09/05/17 15:46 09/05/17 15:46 09/05/17 15:46 09/05/17 15:46 - Labs Labs: 09/03/17 08:02 09/03/17 08:02 PT 12.7 SECONDS (9.7-12.2) H 09/03/17 08:02 INR 1.2 09/03/17 08:02 APTT 35 SECONDS (21-34) H 09/03/17 08:02
== END 2017-09-05 18:20 | disposition home or self-care (01) | DRG 76 ==
LOC: C.ER 08:31 → C.9E 13:24 → C.3T 15:04 → C.5S 08-26 01:36 → OBSVTOIN 08-26 14:19 → C.5S 09-03 14:22
PROVIDERS: ADMIT Internal Medicine; ATTEND Internal Medicine
PROC: 0BB Respiratory System, Excision (ICD-10-PCS; principal; 2017-09-05)
DX: J18.1 Lobar pneumonia, unspecified organism (principal); N39.0 Urinary tract infection, site not specified; E78.5 Hyperlipidemia, unspecified; I11.9 Hypertensive heart disease without heart failure; R31.29 Other microscopic hematuria; Z87.891 Personal history of nicotine dependence; E11.9 Type 2 diabetes mellitus without complications